=== PATIENT | male | born 1955 | race Caucasian/White ===

== ENCOUNTER 2017-12-17 10:39 | Inpatient (IN) | payer OTHER ==
[~2017-12-17] VITALS: Ht 162.6 cm; Wt 57.8 kg
[~2017-12-17 10:39] MED LIST: AMLO5TAB3 PO; ASPECOTC PO; ATOR-24 PO; INSDGI SC; LEVO25TA PO; LISI-725 PO; METO50TA16 PO; NVLG INJ; OXYC-57 PO
[2017-12-17 14:20] VITALS: BP 131/71; PULSE 70; TEMP 36.8; O2SAT 99; BMI 21.9
[2017-12-17] MEDS ORDERED: ONDANSETRON INJ 2 MG/ML 2 ML VIAL IV PRN (14:30)
[2017-12-17] MEDS ORDERED: MoRPHine SULFATE 2 MG/ML CARP IV PRN (14:30)
[2017-12-17] MEDS ORDERED: OXYCODONE/ACETAMINOPHEN 5-325 TAB PO PRN ×2 (14:30)
[2017-12-17] MEDS ORDERED: ACETAMINOPHEN 325 MG TAB PO PRN (14:30)
[2017-12-17] MEDS ORDERED: MoRPHine SULFATE 4 MG/ML 1 ML CARP\\VIAL IV PRN (14:30)
[2017-12-17] MEDS ORDERED: PATIENT'S HEIGHT AND/OR WEIGHT NEEDED SCH (14:45)
[2017-12-17] MEDS ORDERED: SODIUM CHLORIDE 0.9% 1000ML 1,000 ML IV SCH (14:45)
--- NOTE | 2017-12-17 15:31 | DIAGNOSTIC IMAGING REPORT ---
R FOOT MIN 3 VIEWS ROUTINE CLINICAL HISTORY: Right foot abscess infection COMPARISON: 10/29/2017 DISCUSSION: Operative changes consistent with resection of the middle and distal phalanx second toe with resection of the distal aspect of the proximal phalanx. Generalized degenerative change of all remaining osseous structures. Mild generalized osteopenia of the phalanges. Moderate generalized soft tissue edematous change. No acute bony abnormality. IMPRESSION: 1. Interval resection of the phalanges of the second toe as discussed. 2. Moderate soft tissue edematous change. 3. No acute bony abnormality is appreciated. The above report was generated using voice recognition software. It may contain grammatical, syntax or spelling errors. Electronically signed by: Antony Phan M.D. 12/17/2017 3:29 PM Dictated Date/Time: 12/17/2017 3:28 PM
[2017-12-17] MEDS ORDERED: PIPERACILL/TAZOBAC CONSULT ACTIVE PRN (15:45)
[2017-12-17] MEDS ORDERED: PIPERACILL/TAZOBAC IV 3.375 GM in D5W 100 ML IV ONE (15:45)
[2017-12-17 16:38] LABS: CREATININE 0.74 mg/dl (0.60-1.40)
[2017-12-17] MEDS ORDERED: PNEUMOCOCCAL ADMINISTRATION CHARGE ONE (17:30)
[2017-12-17] MEDS ORDERED: PNEUMOCOCCAL POLYSACCHARIDES 25 MCG/0.5 ML VIAL/SYR IM. ONE (17:30)
[2017-12-17] MEDS ORDERED: DEXTROSE 50% 50 ML SYR IV PRN (18:00)
[2017-12-17] MEDS ORDERED: GLUCOSE 10 TABS/TUBE PO PRN (18:00)
[2017-12-17] MEDS ORDERED: GLUCAGON FOR INJ 1 MG VIAL SQ PRN (18:00)
[2017-12-17] MEDS ORDERED: GLUCOSE 40% GEL 15 GM TUBE PO PRN (18:00)
[2017-12-17 18:17] LABS: HEMATOCRIT 34.7 % (42-52); HEMOGLOBIN 11.8 g/dL (14.0-18.0); MEAN CORPUSCULAR HEMOGLOBIN 29.6 pg (25-34); MEAN PLATELET VOLUME 9.5 fL (7.4-10.4); PLATELET COUNT 403 K/uL (130-400); RED CELL DISTRIBUTION WIDTH CV 13.6 % (11.5-14.5); RED CELL DISTRIBUTION WIDTH SD 43.1 fL (36.4-46.3); WHITE BLOOD COUNT 14.94 K/uL (4.8-10.8)
[2017-12-17] MEDS: INSULIN ASPART 100 UNITS/ML 3 ML PEN SC SCH ×2 (18:39→21:25)
--- NOTE | 2017-12-17 18:42 | Medical Consult ---
Consultation Date of Consultation: Dec 17, 2017. Attending Physician: Butch Peña M.D. Reason for Consultation: Medical management History of Present Illness 62-year-old male who is directly admitted under general surgery service for right foot abscess. Patient was recently admitted to [facility] 10/29 through 11/01 for right second toe osteomyelitis and gangrene. Patient underwent right second toe amputation during that hospitalization. Wound cultures from that time grew coag negative staph and corynebacterium. Patient was discharged on Augmentin which he completed. Patient reports he has had persistent drainage from the right second toe amputation site. Over the past 4 days, he developed an ulcer on the right medial aspect of the right great toe. He also then noted the skin on the plantar surface of his foot at the base of his toes to be turning yellow and soft. Patient was seen in Dr. Peña's office today for follow-up and he was sent to the hospital for direct admission. Patient denies fevers and chills. He reports his blood sugars have been well controlled. He denies chest pain shortness of breath. No lightheadedness, dizziness, diaphoresis, syncopal events. He denies abdominal pain, nausea, vomiting, diarrhea. He denies any urinary symptoms. At the time my exam, patient is sitting up at the edge of the bed having his dinner. Past Medical/Surgical History Medical Problems: (1) CAD (coronary artery disease) Permanent Comment: 2003-cardiac catheterization showed multivessel CAD involving the mid LAD, first diagonal, circumflex, obtuse marginal, RCA, and posterolateral branches; medical management advised Status: Chronic (2) Diabetes mellitus type 1 Status: Chronic (3) Dyslipidemia Status: Chronic (4) History of left below knee amputation Status: Chronic (5) Hypertension Status: Chronic (6) PAD (peripheral artery disease) Permanent Comment: 1997-left femoropopliteal bypass 1999-left distal bypass 2006-right femoral to left profunda bypass and left BKA Status: Chronic Surgical Problems: (1) History of appendectomy Status: Chronic (2) Right second toe amputation Status: Chronic Family History Diabetes mellitus FATHER MOTHER Social History Smoking Status: Former Smoker Smokeless Tobacco Use: Yes Alcohol Use: none Drug Use: marijuana Allergies Coded Allergies: Adhesives (Verified Allergy, Mild, 10/29/17) Latex1 -Allergic Contact Dermititis (Verified Allergy, Unknown, 10/29/17) Home Medications Aspirin 325 Mg Tab 1 Tab PO DAILY Zestril (Lisinopril) 20 Mg Tab 20 Mg PO DAILY Lopressor (Metoprolol Tartrate) 50 Mg Tab 50 Mg PO BID Norvasc (Amlodipine Besylate) 5 Mg Tab 5 Mg PO DAILY Lipitor (Atorvastatin Calcium) 40 Mg Tab 40 Mg PO DAILY Novolog (Insulin Aspart) 100 Units/Ml Inj 4 Units INJ TIDM plus sliding scale Lantus (Insulin Glargine) 100 Unit/Ml Inj 15 Units SC QPM Current Inpatient Medications Current Inpatient Medications Medications (Trade) Dose Ordered Sig/Annette Route Start Time Stop Time Status Last Admin Dose Admin Sodium Chloride 1,000 ml @ 100 mls/hr Q10H IV 12/17/17 14:45 01/16/18 14:44 12/17/17 16:26 100 MLS/HR Ondansetron HCl (Zofran Inj) 4 mg Q4H PRN IV 12/17/17 14:30 01/16/18 14:29 Acetaminophen (Tylenol Tab) 650 mg Q6H PRN PO 12/17/17 14:30 01/16/18 14:29 Oxycodone/ Acetaminophen (Percocet 5-325mg Tab) 1 tab Q4H PRN PO 12/17/17 14:30 12/31/17 14:29 Morphine Sulfate (MoRPHine SULFATE INJ) 2 mg Q3HWA PRN IV 12/17/17 14:30 12/31/17 14:29 Oxycodone/ Acetaminophen (Percocet 5-325mg Tab) 2 tab Q4H PRN PO 12/17/17 14:30 12/31/17 14:29 Morphine Sulfate (MoRPHine SULFATE INJ) 4 mg Q3HWA PRN IV 12/17/17 14:30 12/31/17 14:29 Miscellaneous Information (Consult) 1 ea UD PRN N/A 12/17/17 15:45 01/16/18 15:44 Heparin Sodium (Porcine) (Heparin Sq 5000 Unit/0.5ml) 5,000 unit Q12 SQ 12/18/17 09:00 01/17/18 08:59 Piperacillin Sod/ Tazobactam Sod 3.375 gm/Dextrose 115 ml @ 28.75 mls/ hr Q8H IV 12/17/17 22:00 12/18/17 17:59 Amlodipine Besylate (Norvasc Tab) 5 mg DAILY PO 12/18/17 09:00 01/17/18 08:59 Atorvastatin Calcium (Lipitor Tab) 40 mg DAILY PO 12/18/17 09:00 01/17/18 08:59 Insulin Glargine (Lantus Solostar Pen) 15 units QPM SC 12/17/17 21:00 01/16/18 20:59 Lisinopril (Zestril Tab) 20 mg DAILY PO 12/18/17 09:00 01/17/18 08:59 Metoprolol Tartrate (Lopressor Tab) 50 mg BID PO 12/17/17 21:00 01/16/18 20:59 Insulin Aspart (novoLOG ASPART) SLIDING SCALE If C... ACHS SC 12/17/17 17:15 01/16/18 17:14 Glucose (Glucose 40% Gel) 15-30 GRAMS 15 GRAMS... UD PRN PO 12/17/17 18:00 01/16/18 17:59 Glucose (Glucose Chew Tab) 4-8 Tablets 4 Tabl... UD PRN PO 12/17/17 18:00 01/16/18 17:59 Dextrose (Dextrose 50% 50ML Syringe) 25-50ML 25ML FOR ... UD PRN IV 12/17/17 18:00 01/16/18 17:59 Glucagon (Glucagon Inj) 1 mg UD PRN SQ 12/17/17 18:00 01/16/18 17:59 Carbohydrates (Carbohydrates For Hypoglycemia) 15-30 GRAMS 15 grams if BSG 54-69... UD PRN PO 12/17/17 18:00 01/16/18 17:59 Review of Systems ROS per HPI, all other systems reviewed and negative Physical Exam Date Time Temp Pulse Resp B/P (MAP) Pulse Ox O2 Delivery O2 Flow Rate FiO2 12/17/17 15:30 Room Air 12/17/17 14:20 36.8 70 18 131/71 99 Room Air General Appearance: WD/WN, no apparent distress Head: normocephalic, atraumatic Eyes: normal inspection, EOMI, funduscopic exam normal ENT: hearing grossly normal, + pertinent finding (Mucous membranes moist) Neck: supple, no JVD, trachea midline Respiratory/Chest: lungs clear, normal breath sounds, no respiratory distress Cardiovascular: regular rate, rhythm, no edema, + pertinent finding (Pedal pulses diminished) Abdomen/GI: normal bowel sounds, non tender, soft, no organomegaly Extremities/Musculoskelatal: no calf tenderness, normal capillary refill, + pertinent finding (Left BKA) Neurologic/Psych: no motor/sensory deficits, alert, normal mood/affect, oriented x 3 Skin: normal color, warm/dry, + pertinent finding (Open wound noted to right second toe amputation site with white/yellow drainage; ulcer noted to the medial aspect of the base of the right great toe; yellow tissue noted to the base of the right toes on the plantar surface) Laboratory Results Last 24 Hours Test 12/17/17 16:03 12/17/17 17:00 12/17/17 17:54 Creatinine 0.74 mg/dl Est Creatinine Clear Calc Drug Dose 83.5 ml/min Estimated GFR () 113.8 Estimated GFR (Non- 98.2 Bedside Glucose 137 mg/dl Assessment & Plan RIGHT FOOT ABSCESS -Directly admitted by general surgery service -History of right second toe osteomyelitis/gangrene status post amputation on ; wound cultures grew coag negative staph and corynebacterium -Currently afebrile, vital signs stable; labs pending -Started on Zosyn by general surgery -ID consult by general surgery DM TYPE I -Hgb A1c 9.9 08/2017 -Continue Lantus and NovoLog CAD -Stable, no reports of chest pain -Continue statin, beta-theo -will hold aspirin due to possible invasive procedure HYPERTENSION -BP stable, continue lisinopril and metoprolol PAD -Holding aspirin due to possible invasive procedure POSSIBLE HYPOTHYROIDISM -During previous admission, patient was noted to have an elevated TSH however normal free T4 -He was started on low-dose levothyroxine at discharge however has since run out of the prescription -Question if recent abnormal TSH was secondary to an acute phase reactant from infection -Will recheck TSH and free T4 -Hold on levothyroxine for now DVT PROPHYLAXIS Heparin SQ Thank you for this consultation. We will follow the patient with you during their hospital stay. You can reach a [facility]/12 via pager @ . Attending Note: Patient is a 62 yr male with PMH of DM I, PAD, Osteomyelitis and other problems presents with drainage from right 2nd toe amputation site. On recommendations from Dr. Peña, patient is admitted for further management. Physical Exam: Vitals signs as noted above General Appearance:Moderately built and nourished, no apparent distress Head: normocephalic, Atraumatic Eyes: normal inspection, EOMI, PERRL Neck: supple, Trachea midline Respiratory/Chest: Normal breath sounds, CTA Cardiovascular: S1, S2, No murmur Abdomen/GI:Soft, Non tender, Bowel sounds present Extremities/Musculoskelatal:normal inspection, no edema, Left BKA, Right foot wound/drainage with ulceration Neurologic/Psych:AAOX3, grossly no focal neurological deficits Skin:normal color,warm Assessment and Plan: Right Foot Abscess 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 Continue IV Zosyn ID consulted for Input Surgery on board DM Type I ISS, Lantus Monitor BGs I personally reviewed the record. Patient is interviewed and examined at bedside. Patient's care is coordinated with Roberta Leo HOUSEKEEPING/LAUNDRY SUPERVISOR. Please refer to the documentation above for details of patient's presentation and for discussion of other issues.
[2017-12-17 18:46] LABS: CALCIUM 9.2 mg/dl (8.5-10.1); CREATININE 0.78 mg/dl (0.60-1.40); POTASSIUM 5.2 mmol/L (3.5-5.1)
[2017-12-17] MEDS: SODIUM CHLORIDE 0.9% 1000ML 1,000 ML IV SCH (19:30)
[2017-12-17] MEDS ORDERED: INSULIN GLARGINE SOLOSTAR 100 UNITS/ML 3 ML PEN SC SCH (21:00)
[2017-12-17 21:20] VITALS: BP 152/64; PULSE 72
[2017-12-17] MEDS: METOPROLOL TARTRATE 50 MG TAB PO SCH (21:22)
[2017-12-17] MEDS: PIPERACILL/TAZOBAC IV 3.375 GM in D5W 100ML IV SCH (21:52)
[2017-12-17] MEDS ORDERED: PIPERACILL/TAZOBAC IV 3.375 GM in DEXTROSE 5% 100ML 100 ML IV SCH (22:00)
[2017-12-17 22:28] VITALS: O2SAT 99
[2017-12-17 23:22] VITALS: BP 143/65; PULSE 87; TEMP 37; O2SAT 100
[2017-12-18] MEDS: SODIUM CHLORIDE 0.9% 1000ML 1,000 ML IV SCH ×2 (04:22→19:18)
[2017-12-18] MEDS: PIPERACILL/TAZOBAC IV 3.375 GM in D5W 100ML IV SCH ×3 (05:47→21:50)
[2017-12-18 06:04] LABS: BASO % 0.4 %; BASO ABS # 0.05 K/uL (0-0.2); EOS % 4.5 %; EOS ABS # 0.53 K/uL (0-0.5); HEMATOCRIT 34.1 % (42-52); HEMOGLOBIN 11.4 g/dL (14.0-18.0); IG# 0.02 K/uL (0.00-0.02); LYMPH % 20.2 %; LYMPH ABS # 2.39 K/uL (1.2-3.4); MEAN CELL VOLUME 86.5 fL (80-100); MEAN CORPUSCULAR HEMOGLOBIN 28.9 pg (25-34); MEAN CORPUSCULAR HGB CONC 33.4 g/dl (32-36); MEAN PLATELET VOLUME 9.4 fL (7.4-10.4); MONO % 6.9 %; MONO ABS # 0.81 K/uL (0.11-0.59); NEUT % 67.8 %; NEUT ABS # 8.02 K/uL (1.4-6.5); PLATELET COUNT 393 K/uL (130-400); RED CELL DISTRIBUTION WIDTH CV 13.5 % (11.5-14.5); RED CELL DISTRIBUTION WIDTH SD 42.6 fL (36.4-46.3); WHITE BLOOD COUNT 11.82 K/uL (4.8-10.8)
[2017-12-18 06:15] LABS: PTT PATIENT 25.6 SECONDS (21.0-31.0)
[2017-12-18 06:55] LABS: ALBUMIN 3.4 gm/dl (3.4-5.0); CALCIUM 9.2 mg/dl (8.5-10.1); CREATININE 0.71 mg/dl (0.60-1.40); POTASSIUM 3.8 mmol/L (3.5-5.1); TOTAL PROTEIN 7.1 gm/dl (6.4-8.2)
[2017-12-18] MEDS: CARBOHYDRATES FOR HYPOGLYCEMIA PO PRN ×2 (06:58→07:18)
[2017-12-18 07:52] VITALS: BP 156/62; PULSE 70; TEMP 36.5; O2SAT 96
[2017-12-18 07:54] VITALS: O2SAT 96
--- NOTE | 2017-12-18 08:47 | SURGERY PROGRESS NOTE ---
DATE: 12/18/2017 Casa is well known to me for approximately 20 years who has had significant peripheral vascular disease, multiple revascularizations over the past and had a left BK amputation approximately 10 years ago. I saw him at the beginning of October where he came in with a dry gangrene of the second toe, underwent a vascular evaluation and found to have 1-vessel open below the knee, not amendable to any therapy. At this time we went on and given the option to either leave that toe as it is since it was a dry gangrene and there was no evidence of cellulitis or try to take it off. He wanted to take the toe off. Therefore, we went on and resected the proximal phalanx. We saw him in the office a couple times in followup, one time he cancelled because his battery in the car was not working but every time he came in. The area initially it seems like it was improving and then I saw him about a week ago where he had some debris around the operative site, some ischemic tissue, I tried to mechanically remove that and a little uncomfortable with it. The site and the base of it appeared to be somewhat perfused. Therefore, I went on and started him on some Santyl to see him back in the office in 1 week. Also I put him on Cleocin. He came back to the office with what appeared to be dry ischemic changes in the great toe area. It seemed like from moisture embedding the tissue in the great toe area. I denuded the skin in that area in length. The base appeared to be fairly vascular in nature but given the extent of this, I recommended that the patient be admitted for antibiotics and possible decide whether or not we would need further amputation including a BK amputation as a last resort, as stated, he already had a BKA on the left side. The patient's clinical picture as such that he said since the toe was dark, he has had some trouble sleeping at night, indicating there is probably significant rest pain, although on examination, he does have capillary refill also sluggish. At this point, we will have Dr. Butts see the patient and try to see if we can salvage any tissue and try at all cost to avoid a BK amputation. We can certainly try to do a transmetatarsal amputation but I am worried that this may not work, the fact that he has got rest pain. Of note, since he was admitted last night, the area on the antibiotics looked much better. The dry skin that was at the surrounding the mid portion of the great toe is pretty much gone and the toe itself appears to be fairly perfused as he is sitting up. The x-ray of the foot shows no active loss still he does have the resection of the proximal phalanx of the second toe. I will add some Plavix on for the gentleman at this time to see if it may help the perfusion. I do not think heparinization or long-term Coumadin would be indicated. Also of note, this gentleman is a quite stoic, in fact years past, he pulled out his own molars with a pair of pliers.
[2017-12-18] MEDS ORDERED: PHARMACY GLYCEMIC MGMT CONSULT PRN (09:05)
[2017-12-18] MEDS: AMLODIPINE BESYLATE 5 MG TAB PO SCH (09:10)
[2017-12-18] MEDS: METOPROLOL TARTRATE 50 MG TAB PO SCH ×2 (09:10→21:25)
[2017-12-18] MEDS: ATORVASTATIN 40 MG TAB PO SCH (09:10)
[2017-12-18] MEDS: LISINOPRIL 20 MG TAB PO SCH (09:11)
[2017-12-18] MEDS: HEPARIN SOD 5000 UNIT/0.5 ML CARP SQ SCH ×2 (09:18→21:22)
[2017-12-18] MEDS: INSULIN ASPART 100 UNITS/ML 3 ML PEN SC SCH ×4 (09:23→21:21)
--- NOTE | 2017-12-18 10:48 | Medical Consult ---
Consultation Date of Consultation: Dec 18, 2017. Attending Physician: Butch Peña M.D. Reason for Consultation: Right foot infection History of Present Illness 62-year-old male with severe peripheral arterial disease, diabetes mellitus, hospitalized in October for amputation of his right second toe for dry gangrene, status post left BK amputation, who was admitted to the hospital with 5 days worsening infection at the amputation site in his right foot. He had increasing drainage and poor wound healing, was treated with clindamycin without significant improvement. Has now been started empirically on vancomycin and Zosyn. Cultures are pending. X-rays, read by me, showed no obvious progressive osteomyelitis. He has had low-grade fever and chills. Pain up to 8 out of 10 in intensity right foot. Past Medical/Surgical History Medical Problems: (1) CAD (coronary artery disease) (2) Diabetes mellitus type 1 (3) Dyslipidemia (4) History of left below knee amputation (5) Hypertension (6) PAD (peripheral artery disease) Surgical Problems: (1) History of appendectomy (2) Right second toe amputation Family History Diabetes mellitus FATHER MOTHER Social History Smoking Status: Former Smoker Smokeless Tobacco Use: Yes Alcohol Use: none Drug Use: marijuana Allergies Coded Allergies: Adhesives (Verified Allergy, Mild, 10/29/17) Latex1 -Allergic Contact Dermititis (Verified Allergy, Unknown, 10/29/17) Current Inpatient Medications Current Inpatient Medications Medications (Trade) Dose Ordered Sig/Annette Route Start Time Stop Time Status Last Admin Dose Admin Ondansetron HCl (Zofran Inj) 4 mg Q4H PRN IV 12/17/17 14:30 01/16/18 14:29 Acetaminophen (Tylenol Tab) 650 mg Q6H PRN PO 12/17/17 14:30 01/16/18 14:29 Oxycodone/ Acetaminophen (Percocet 5-325mg Tab) 1 tab Q4H PRN PO 12/17/17 14:30 12/31/17 14:29 12/18/17 09:28 1 TAB Morphine Sulfate (MoRPHine SULFATE INJ) 2 mg Q3HWA PRN IV 12/17/17 14:30 12/31/17 14:29 Oxycodone/ Acetaminophen (Percocet 5-325mg Tab) 2 tab Q4H PRN PO 12/17/17 14:30 12/31/17 14:29 12/18/17 00:44 2 TAB Morphine Sulfate (MoRPHine SULFATE INJ) 4 mg Q3HWA PRN IV 12/17/17 14:30 12/31/17 14:29 Miscellaneous Information (Consult) 1 ea UD PRN N/A 12/17/17 15:45 01/16/18 15:44 Heparin Sodium (Porcine) (Heparin Sq 5000 Unit/0.5ml) 5,000 unit Q12 SQ 12/18/17 09:00 01/17/18 08:59 12/18/17 09:18 5,000 UNIT Piperacillin Sod/ Tazobactam Sod 3.375 gm/Dextrose 115 ml @ 28.75 mls/ hr Q8H IV 12/17/17 22:00 12/18/17 17:59 12/18/17 05:47 28.75 MLS/HR Amlodipine Besylate (Norvasc Tab) 5 mg DAILY PO 12/18/17 09:00 01/17/18 08:59 12/18/17 09:10 5 MG Atorvastatin Calcium (Lipitor Tab) 40 mg DAILY PO 12/18/17 09:00 01/17/18 08:59 12/18/17 09:10 40 MG Insulin Glargine (Lantus Solostar Pen) 15 units QPM SC 12/17/17 21:00 01/16/18 20:59 12/17/17 21:24 15 UNITS Lisinopril (Zestril Tab) 20 mg DAILY PO 12/18/17 09:00 01/17/18 08:59 12/18/17 09:11 20 MG Metoprolol Tartrate (Lopressor Tab) 50 mg BID PO 12/17/17 21:00 01/16/18 20:59 12/18/17 09:10 50 MG Insulin Aspart (novoLOG ASPART) SLIDING SCALE If C... ACHS SC 12/17/17 17:15 01/16/18 17:14 12/18/17 09:23 2 UNITS Glucose (Glucose 40% Gel) 15-30 GRAMS 15 GRAMS... UD PRN PO 12/17/17 18:00 01/16/18 17:59 12/18/17 06:57 30 GM Glucose (Glucose Chew Tab) 4-8 Tablets 4 Tabl... UD PRN PO 12/17/17 18:00 01/16/18 17:59 Dextrose (Dextrose 50% 50ML Syringe) 25-50ML 25ML FOR ... UD PRN IV 12/17/17 18:00 01/16/18 17:59 Glucagon (Glucagon Inj) 1 mg UD PRN SQ 12/17/17 18:00 01/16/18 17:59 Carbohydrates (Carbohydrates For Hypoglycemia) 15-30 GRAMS 15 grams if BSG 54-69... UD PRN PO 12/17/17 18:00 01/16/18 17:59 12/18/17 06:58 30 GM Sodium Chloride 1,000 ml @ 80 mls/hr [id number] IV 12/17/17 19:30 01/16/18 19:29 12/18/17 04:22 80 MLS/HR Clopidogrel Bisulfate (plAVix TAB) 75 mg QAM PO 12/18/17 09:00 01/17/18 08:59 Miscellaneous Information (Consult Glycemic Management Pharmacy) 1 ea UD PRN N/A 12/18/17 09:05 01/17/18 09:04 Review of Systems All systems were reviewed and are negative except as per HPI Physical Exam Date Time Temp Pulse Resp B/P (MAP) Pulse Ox O2 Delivery O2 Flow Rate FiO2 12/18/17 07:54 96 Room Air 12/18/17 07:52 36.5 70 15 156/62 (93) 96 Room Air 12/18/17 07:29 Room Air 12/17/17 23:45 Room Air 12/17/17 23:22 37.0 87 18 143/65 (91) 100 Room Air 12/17/17 22:28 99 Room Air 12/17/17 21:20 72 152/64 (93) 12/17/17 19:30 Room Air 12/17/17 15:30 Room Air 12/17/17 14:20 36.8 70 18 131/71 99 Room Air General Appearance: WD/WN, no apparent distress Head: normocephalic, atraumatic Eyes: normal inspection, EOMI, sclerae normal ENT: normal ENT inspection, hearing grossly normal, pharynx normal Neck: supple, no adenopathy, thyroid normal, trachea midline Respiratory/Chest: chest non-tender, lungs clear, normal breath sounds, no respiratory distress Cardiovascular: regular rate, rhythm, no gallop, no murmur Abdomen/GI: normal bowel sounds, non tender, soft, no organomegaly Back: normal inspection, no CVA tenderness Extremities/Musculoskelatal: normal inspection, no calf tenderness, + slow capillary refill, + pertinent finding (Left BKA) Neurologic/Psych: alert, oriented x 3 Skin: normal color, no rash, + pertinent finding (Open wound right foot at the amputation site with serous drainage, erythema and induration of the foot.) Lymphatic: no adenopathy Laboratory Results RUN DATE: 10/31/17 [facility] LAB PAGE 1 RUN TIME: 1159 Specimen Inquiry PATIENT: TREE MONTELONGO LOC: [facility] U # : [id number] AGE/SX: 61/M ROOM: [facility] REG : 10/29/[address]: Shamar Serrato M.D. : 1955 BED: 2 DIS : STATUS: ADM IN TLOC: SPEC #: [id number] GEOFF: 10/29/17-UNK STATUS: COMP REQ #: [id number] RECD: 10/29/17-[address]: Brett Gibbs PA- C SOURCE: [facility] ENTR: 10/29/[address]: No Doctor, Assigned SPDESC: TOE Butch Em M.D. ORDERED: MIHAI FANG/[place] COMMENTS: Has Specimen Been Obtained/Collected? Y Procedure Result Verified Site GRAM STAIN Final 10/30/17-08 RESULT FEW EPITHELIAL CELLS FEW GRAM POSITIVE BACILLI MODERATE GRAM POSITIVE COCCI RARE WBCs SEEN SURFACE WOUND CULTURE Final 10/31/17-1159 Organism 1 COAG NEG STAPHYLOCOCCUS QUANITY MANY SENS NO SENSITIVITY TO FOLLOW +MIXWOUND PLUS HIGH COUNTS OF PROBABLE SKIN CRISTY Organism 2 CORYNEBACTERIUM SPECIES QUANITY MANY SENS NO SENSITIVITY TO FOLLOW Last 24 Hours Test 12/17/17 16:03 12/17/17 17:00 12/17/17 17:54 12/17/17 20:58 Creatinine 0.74 mg/dl 0.78 mg/dl Est Creatinine Clear Calc Drug Dose 83.5 ml/min 79.2 ml/min Estimated GFR () 113.8 111.3 Estimated GFR (Non- 98.2 96.1 Bedside Glucose 137 mg/dl 270 mg/dl White Blood Count 14.94 K/uL Red Blood Count 3.99 M/uL Hemoglobin 11.8 g/dL Hematocrit 34.7 % Mean Corpuscular Volume 87.0 fL Mean Corpuscular Hemoglobin 29.6 pg Mean Corpuscular Hemoglobin Concent 34.0 g/dl RDW Standard Deviation 43.1 fL RDW Coefficient of Variation 13.6 % Platelet Count 403 K/uL Mean Platelet Volume 9.5 fL Sodium Level 133 mmol/L Potassium Level 5.2 mmol/L Chloride Level 98 mmol/L Carbon Dioxide Level 30 mmol/L Anion Gap 4.0 mmol/L Blood Urea Nitrogen 19 mg/dl BUN/Creatinine Ratio 24.5 Random Glucose 227 mg/dl Calcium Level 9.2 mg/dl Thyroid Stimulating Hormone (TSH) 11.700 uIu/ml Free Thyroxine 0.94 ng/dl Test 12/18/17 05:35 12/18/17 06:57 12/18/17 07:11 12/18/17 07:35 White Blood Count 11.82 K/uL Red Blood Count 3.94 M/uL Hemoglobin 11.4 g/dL Hematocrit 34.1 % Mean Corpuscular Volume 86.5 fL Mean Corpuscular Hemoglobin 28.9 pg Mean Corpuscular Hemoglobin Concent 33.4 g/dl Platelet Count 393 K/uL Mean Platelet Volume 9.4 fL Neutrophils (%) (Auto) 67.8 % Lymphocytes (%) (Auto) 20.2 % Monocytes (%) (Auto) 6.9 % Eosinophils (%) (Auto) 4.5 % Basophils (%) (Auto) 0.4 % Neutrophils # (Auto) 8.02 K/uL Lymphocytes # (Auto) 2.39 K/uL Monocytes # (Auto) 0.81 K/uL Eosinophils # (Auto) 0.53 K/uL Basophils # (Auto) 0.05 K/uL RDW Standard Deviation 42.6 fL RDW Coefficient of Variation 13.5 % Immature Granulocyte % (Auto) 0.2 % Immature Granulocyte # (Auto) 0.02 K/uL Prothrombin Time 10.3 SECONDS Prothromb Time International Ratio 1.0 Activated Partial Thromboplast Time 25.6 SECONDS Partial Thromboplastin Ratio 1.0 Sodium Level 136 mmol/L Potassium Level 3.8 mmol/L Chloride Level 100 mmol/L Carbon Dioxide Level 28 mmol/L Anion Gap 8.0 mmol/L Blood Urea Nitrogen 13 mg/dl Creatinine 0.71 mg/dl Est Creatinine Clear Calc Drug Dose 87.1 ml/min Estimated GFR () 115.7 Estimated GFR (Non- 99.9 BUN/Creatinine Ratio 19.0 Random Glucose 46 mg/dl Calcium Level 9.2 mg/dl Total Bilirubin 0.3 mg/dl Aspartate Amino Transf (AST/SGOT) 48 U/L Alanine Aminotransferase (ALT/SGPT) 40 U/L Alkaline Phosphatase 104 U/L Total Protein 7.1 gm/dl Albumin 3.4 gm/dl Globulin 3.7 gm/dl Albumin/Globulin Ratio 0.9 Bedside Glucose 57 mg/dl 60 mg/dl 93 mg/dl [~ rep ct add3]] R FOOT MIN 3 VIEWS ROUTINE CLINICAL HISTORY: Right foot abscess infection COMPARISON: 10/29/2017 DISCUSSION: Operative changes consistent with resection of the middle and distal phalanx second toe with resection of the distal aspect of the proximal phalanx. Generalized degenerative change of all remaining osseous structures. Mild generalized osteopenia of the phalanges. Moderate generalized soft tissue edematous change. No acute bony abnormality. IMPRESSION: 1. Interval resection of the phalanges of the second toe as discussed. 2. Moderate soft tissue edematous change. 3. No acute bony abnormality is appreciated. The above report was generated using voice recognition software. It may contain grammatical, syntax or spelling errors. Assessment & Plan 62-year-old male with severe peripheral arterial disease and diabetes mellitus now with worsening right foot infection following amputation of his right second toe. Pending decision regarding need for further surgery, patient to be treated empirically with vancomycin and Zosyn. Would obtain culture from drainage from the foot. Will follow.
[2017-12-18] MEDS: CLOPIDOGREL BISULFATE 75 MG TAB PO SCH (11:11)
--- NOTE | 2017-12-18 11:17 | Pharmacy Progress Note ---
Glycemic Control Intl Consult Date of Service Dec 18, 2017. Scope Glycemic Pharmacist consulted by Dr Low on 12/18/17 for glycemic control and to write orders per [facility] inpatient glycemic control protocol Objective Weight (Kilograms): 57.800 Accuchecks BSG (last 24hrs): Test 12/17/17 17:00 12/17/17 17:54 12/17/17 20:58 12/18/17 05:35 Bedside Glucose 137 mg/dl (70-99) 270 mg/dl (70-99) Random Glucose 227 mg/dl (70-99) 46 mg/dl (70-99) Test 12/18/17 06:57 12/18/17 07:11 12/18/17 07:35 Bedside Glucose 57 mg/dl (70-99) 60 mg/dl (70-99) 93 mg/dl (70-99) Laboratory Data (last 24hrs) Test 12/17/17 16:03 12/17/17 17:54 12/18/17 05:35 Creatinine 0.74 mg/dl 0.78 mg/dl 0.71 mg/dl Anion Gap 4.0 mmol/L 8.0 mmol/L BUN/Creatinine Ratio 24.5 19.0 Blood Urea Nitrogen 19 mg/dl 13 mg/dl Potassium Level 5.2 mmol/L 3.8 mmol/L Sodium Level 133 mmol/L 136 mmol/L White Blood Count 14.94 K/uL 11.82 K/uL Red Blood Count 3.94 M/uL Hemoglobin 11.4 g/dL Hematocrit 34.1 % Mean Corpuscular Volume 86.5 fL Mean Corpuscular Hemoglobin 28.9 pg Mean Corpuscular Hemoglobin Concent 33.4 g/dl Platelet Count 393 K/uL Mean Platelet Volume 9.4 fL Neutrophils (%) (Auto) 67.8 % Lymphocytes (%) (Auto) 20.2 % Monocytes (%) (Auto) 6.9 % Eosinophils (%) (Auto) 4.5 % Basophils (%) (Auto) 0.4 % Neutrophils # (Auto) 8.02 K/uL Lymphocytes # (Auto) 2.39 K/uL Monocytes # (Auto) 0.81 K/uL Eosinophils # (Auto) 0.53 K/uL Basophils # (Auto) 0.05 K/uL Recent Pertinent Medications Outpatient Anti-diabetic Regimen: * Lantus 15 units qPM * Novolog 4 units with meals + sliding scale * A1c = 9.9 % 08/2017 The patient is currently receiving: * Basal insulin: Lantus 15 units every 24 hours - dosed at HS * Correctional Insulin: Novolog Correction per scale ACHS Goal Range: Low 110 mg/dL - High 150 mg/dL Correction Factor: 40 mg/dL/unit * Prandial insulin: Per carb ratio of 1 unit per 14 grams CHO consumed Risk Factors for Insulin Resistance: * Infection: R foot abscess - on Zosyn * Diet: type 1 diabetes diet - consuming adequate amt of CHO with meals Assessment & Plan ASSESSMENT: * 62 y/o male admitted with R foot abscess, well known to the pharmacy glycemic service from previous admissions. He is a fairly brittle type 1 diabetic, managed on Lantus and Novolog as an outpatient. * Pharmacy consulted this AM after patient sustained a severe episode of hypoglycemia this AM - treated with 45 gm CHO as per nursing note * As per recent CDE notes, he typically has overnight lows at home so he eats a large amt at bedtime to increase his BSG and prevent the overnight low. To prevent this on the inpatient side, will plan to decrease his basal. I did see that an HS snack was ordered but will still need covered with bolus insulin. PLAN FOR INPATIENT GLYCEMIC CONTROL: * Basal insulin - decrease * Lantus 13 units qHS * Bolus Insulin with NOVOLOG per scale ACHS or Q6hrs while NPO - no change except to loosen HS parameters * Goal Range: Low 110 mg/dL - High 150 mg/dL * Correction Factor: 40 mg/dL/unit, 50 mg/dL/unit at HS * Nutritional / Prandial insulin per carb ratio of 1 unit per 14 grams CHO consumed, 1 unit per 20 gm CHO at HS * A1c ordered for tomorrow to assess recent BSG control, last one > 90 days ago * Please note that the plan above was derived based on current level of insulin resistance and hospital stress. These recommendations are appropriate for inpatient admission only. Plan of care upon discharge will need to be reassessed to avoid potential outpatient hypo/hyperglycemia. Thank you.
[2017-12-18 11:19] VITALS: O2SAT 96
[2017-12-18 11:43] VITALS: BMI 21.9
[2017-12-18] MEDS ORDERED: CONSULT PHARMACY STA (13:13)
--- NOTE | 2017-12-18 13:23 | Progress Note ---
Internal Med Progress Note Date of Service: Dec 18, 2017. Provider Documentation: SUBJECTIVE: Seen and examined at bedside States having mild foot pain at rest and with cold exposure Hypoglycemic this morning but asymptomatic Started on Plavix Denies chest pain, SOB, dizziness No other complaints OBJECTIVE: Vital Signs-as noted below General Appearance:Moderately built and nourished, no apparent distress Head: normocephalic, Atraumatic Eyes: normal inspection, EOMI, PERRL Neck: supple, Trachea midline Respiratory/Chest: Normal breath sounds, CTA Cardiovascular: S1, S2, No murmur Abdomen/GI:Soft, Non tender, Bowel sounds present Extremities/Musculoskelatal:normal inspection, no edema, Left BKA, Right foot wound/drainage with ulceration Neurologic/Psych:AAOX3, grossly no focal neurological deficits Skin:normal color,warm Lab data as noted below. 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 Continue IV Zosyn, add Vanco Appreciate ID Input Surgery on board added Plavix as patient has rest pain Obtain wound GS, culture DM Type I ISS, Lantus Monitor BGs Hypoglycemic this morning check A1C Pharmacy Consulted for Glycemic management CAD Stable Continue Aspirin, statin, beta-theo HTN: stable continue lisinopril, metoprolol PAD Continue aspirin Plavix started Possible Subclinical Hypothyroidism: Elevated TSH, normal free T4 Continue levothyroxine Repeat Thyroid function test as outpatient DVT Px: Heparin SQ Disposition: Per Primary Team Vital Signs: Date Time Temp Pulse Resp B/P (MAP) Pulse Ox O2 Delivery O2 Flow Rate FiO2 12/18/17 11:19 96 Room Air 12/18/17 07:54 96 Room Air 12/18/17 07:52 36.5 70 15 156/62 (93) 96 Room Air 12/18/17 07:29 Room Air 12/17/17 23:45 Room Air 12/17/17 23:22 37.0 87 18 143/65 (91) 100 Room Air 12/17/17 22:28 99 Room Air 12/17/17 21:20 72 152/64 (93) 12/17/17 19:30 Room Air 12/17/17 15:30 Room Air 12/17/17 14:20 36.8 70 18 131/71 99 Room Air Lab Results: Results Past 24 Hours Test 12/17/17 16:03 12/17/17 17:00 12/17/17 17:54 12/17/17 20:58 Range/Units Creatinine 0.74 0.78 0.60-1.40 mg/dl Est Creatinine Clear Calc Drug Dose 83.5 79.2 ml/min Estimated GFR () 113.8 111.3 Estimated GFR (Non- 98.2 96.1 Bedside Glucose 137 270 70-99 mg/dl White Blood Count 14.94 4.8-10.8 K/uL Red Blood Count 3.99 4.7-6.1 M/uL Hemoglobin 11.8 14.0-18.0 g/dL Hematocrit 34.7 42-52 % Mean Corpuscular Volume 87.0 80-100 fL Mean Corpuscular Hemoglobin 29.6 25-34 pg Mean Corpuscular Hemoglobin Concent 34.0 32-36 g/dl RDW Standard Deviation 43.1 36.4-46.3 fL RDW Coefficient of Variation 13.6 11.5-14.5 % Platelet Count 403 130-400 K/uL Mean Platelet Volume 9.5 7.4-10.4 fL Sodium Level 133 136-145 mmol/L Potassium Level 5.2 3.5-5.1 mmol/L Chloride Level 98 98-107 mmol/L Carbon Dioxide Level 30 21-32 mmol/L Anion Gap 4.0 3-11 mmol/L Blood Urea Nitrogen 19 7-18 mg/dl BUN/Creatinine Ratio 24.5 10-20 Random Glucose 227 70-99 mg/dl Calcium Level 9.2 8.5-10.1 mg/dl Thyroid Stimulating Hormone (TSH) 11.700 0.300-4.500 uIu/ml Free Thyroxine 0.94 0.80-1.60 ng/dl Test 12/18/17 05:35 12/18/17 06:57 12/18/17 07:11 12/18/17 07:35 Range/Units White Blood Count 11.82 4.8-10.8 K/uL Red Blood Count 3.94 4.7-6.1 M/uL Hemoglobin 11.4 14.0-18.0 g/dL Hematocrit 34.1 42-52 % Mean Corpuscular Volume 86.5 80-100 fL Mean Corpuscular Hemoglobin 28.9 25-34 pg Mean Corpuscular Hemoglobin Concent 33.4 32-36 g/dl Platelet Count 393 130-400 K/uL Mean Platelet Volume 9.4 7.4-10.4 fL Neutrophils (%) (Auto) 67.8 % Lymphocytes (%) (Auto) 20.2 % Monocytes (%) (Auto) 6.9 % Eosinophils (%) (Auto) 4.5 % Basophils (%) (Auto) 0.4 % Neutrophils # (Auto) 8.02 1.4-6.5 K/uL Lymphocytes # (Auto) 2.39 1.2-3.4 K/uL Monocytes # (Auto) 0.81 0.11-0.59 K/uL Eosinophils # (Auto) 0.53 0-0.5 K/uL Basophils # (Auto) 0.05 0-0.2 K/uL RDW Standard Deviation 42.6 36.4-46.3 fL RDW Coefficient of Variation 13.5 11.5-14.5 % Immature Granulocyte % (Auto) 0.2 % Immature Granulocyte # (Auto) 0.02 0.00-0.02 K/uL Prothrombin Time 10.3 9.0-12.0 SECONDS Prothromb Time International Ratio 1.0 0.9-1.1 Activated Partial Thromboplast Time 25.6 21.0-31.0 SECONDS Partial Thromboplastin Ratio 1.0 Sodium Level 136 136-145 mmol/L Potassium Level 3.8 3.5-5.1 mmol/L Chloride Level 100 98-107 mmol/L Carbon Dioxide Level 28 21-32 mmol/L Anion Gap 8.0 3-11 mmol/L Blood Urea Nitrogen 13 7-18 mg/dl Creatinine 0.71 0.60-1.40 mg/dl Est Creatinine Clear Calc Drug Dose 87.1 ml/min Estimated GFR () 115.7 Estimated GFR (Non- 99.9 BUN/Creatinine Ratio 19.0 10-20 Random Glucose 46 70-99 mg/dl Calcium Level 9.2 8.5-10.1 mg/dl Total Bilirubin 0.3 0.2-1 mg/dl Aspartate Amino Transf (AST/SGOT) 48 15-37 U/L Alanine Aminotransferase (ALT/SGPT) 40 12-78 U/L Alkaline Phosphatase 104 45-117 U/L Total Protein 7.1 6.4-8.2 gm/dl Albumin 3.4 3.4-5.0 gm/dl Globulin 3.7 2.5-4.0 gm/dl Albumin/Globulin Ratio 0.9 0.9-2 Bedside Glucose 57 60 93 70-99 mg/dl Test 12/18/17 11:51 Range/Units Bedside Glucose 166 70-99 mg/dl
[2017-12-18] MEDS ORDERED: VANCOMYCIN CONSULT ACTIVE PRN (13:30)
--- NOTE | 2017-12-18 14:06 | Pharmacy Progress Note ---
Pharmacy Abx Initial Consult Date of Service Dec 18, 2017. Pharmacy Dosing Scope Date of Consult: 12/18/17 Consultation requested by: Dr. Low Pharmacy is consulted to initiate Vancomycin & Zosyn IV dosing therapy, order appropriate labs and adjust drug dose/frequency. Subjective The patient is a 62 year old male admitted on Dec 17, 2017 at 13:51. Objective Height (Feet): 5 Height (Inches): 4.00 Weight (Kilograms): 57.800 (BMI 21.9) Vital Signs (Past 12Hrs) Vital Signs Past 12 Hours Date Time Temp Pulse Resp B/P (MAP) Pulse Ox O2 Delivery O2 Flow Rate FiO2 12/18/17 11:19 96 Room Air 12/18/17 07:54 96 Room Air 12/18/17 07:52 36.5 70 15 156/62 (93) 96 Room Air 12/18/17 07:29 Room Air Lab Results (24Hrs) Laboratory Tests (24 Hours) Test 12/18/17 05:35 White Blood Count 11.82 K/uL (4.8-10.8) H Red Blood Count 3.94 M/uL (4.7-6.1) L Hemoglobin 11.4 g/dL (14.0-18.0) L Hematocrit 34.1 % (42-52) L Mean Corpuscular Volume 86.5 fL (80-100) Mean Corpuscular Hemoglobin 28.9 pg (25-34) Mean Corpuscular Hemoglobin Concent 33.4 g/dl (32-36) Platelet Count 393 K/uL (130-400) Mean Platelet Volume 9.4 fL (7.4-10.4) Neutrophils (%) (Auto) 67.8 % Lymphocytes (%) (Auto) 20.2 % Monocytes (%) (Auto) 6.9 % Eosinophils (%) (Auto) 4.5 % Basophils (%) (Auto) 0.4 % Neutrophils # (Auto) 8.02 K/uL (1.4-6.5) H Lymphocytes # (Auto) 2.39 K/uL (1.2-3.4) Monocytes # (Auto) 0.81 K/uL (0.11-0.59) H Eosinophils # (Auto) 0.53 K/uL (0-0.5) H Basophils # (Auto) 0.05 K/uL (0-0.2) Item Value Date Time Creatinine 0.71 mg/dl 12/18/17 0535 Est Creatinine Clear Calc Drug Dose 87.1 ml/min 12/18/17 0535 Risk Factors for Resistance * Hospitalization for 48 hours or more within the past 90 days * Antimicrobial use within the last 90 days Zosyn/Augmentin Assessment & Plan Assessment 62 year old male for right foot abscess. He was recently admitted (10/2017) for right 2nd toe osteomyelitis/gangrene. Underwent a right 2nd toe amputation. The wound culture grew coag neg. staph and corynebacterium. He was discharged on Augmentin, which has been completed. Has had persistent drainage from amputation site. Over last few days has developed an ulcer on the tight medial aspect of right great toe. Plan Vancomycin/Zosyn for treatment of foot infection Vancomycin IV * Estimated pkinetics: Vd 0.7L/kg; Gurvinder ~0.077 hr-1; T1/2 ~ 9 hr; CrCl 87.1 * Loading dose: 1500 mg (~25.9 mg/kg) * Maintenance dose: 750 mg IV (~13 mg/kg) every 10 hours * Goal trough level : 15 to 20 mcg/mL * Trough level ordered for 12/20/17 @ 0530 Piperacillin/tazobactam * 3.375 g bolus administered over 30 minutes, then 3.375 g IV extended infusion every 8 hours for CrCl greater than 20 mL/min OR every 12 hours for CrCl 20 mL/ min or less and dialysis. Pharmacy will continue to follow and will adjust dose/frequency as necessary. Thank you.
[2017-12-18] MEDS: VANCOMYCIN IV 1,500 MG in SODIUM CHLORIDE 0.9% 500ML 500 ML IV ONE ×2 (14:26→15:50)
[2017-12-18 14:43] VITALS: BMI 21.9
[2017-12-18 14:53] VITALS: BP 142/64; PULSE 79; TEMP 36.8; O2SAT 97
[2017-12-18] MEDS: INSULIN GLARGINE SOLOSTAR 100 UNITS/ML 3 ML PEN SC SCH (21:21)
[2017-12-18 21:24] VITALS: BP 149/57; PULSE 89
[2017-12-18 23:05] VITALS: BP 143/62; PULSE 77; TEMP 36.7; O2SAT 98
[2017-12-18] MEDS: VANCOMYCIN IV 750 MG in SODIUM CHLORIDE 0.9% 250ML 250 ML IV SCH (23:59)
[2017-12-19] MEDS: PIPERACILL/TAZOBAC IV 3.375 GM in D5W 100ML IV SCH ×3 (05:39→21:35)
[2017-12-19] MEDS: LEVOTHYROXINE 25 MCG TAB PO SCH (05:40)
[2017-12-19 07:01] LABS: HEMATOCRIT 32.8 % (42-52); HEMOGLOBIN 11.2 g/dL (14.0-18.0); MEAN CELL VOLUME 85.6 fL (80-100); MEAN CORPUSCULAR HEMOGLOBIN 29.2 pg (25-34); MEAN CORPUSCULAR HGB CONC 34.1 g/dl (32-36); MEAN PLATELET VOLUME 9.3 fL (7.4-10.4); PLATELET COUNT 375 K/uL (130-400); RED CELL DISTRIBUTION WIDTH CV 13.8 % (11.5-14.5); RED CELL DISTRIBUTION WIDTH SD 42.7 fL (36.4-46.3); WHITE BLOOD COUNT 9.74 K/uL (4.8-10.8)
[2017-12-19 07:30] VITALS: BP 138/64; PULSE 80; TEMP 36.8; O2SAT 97
[2017-12-19 07:36] LABS: CALCIUM 8.7 mg/dl (8.5-10.1); CREATININE 0.91 mg/dl (0.60-1.40); POTASSIUM 4.3 mmol/L (3.5-5.1)
[2017-12-19 08:02] VITALS: O2SAT 97
--- NOTE | 2017-12-19 08:21 | SURGERY PROGRESS NOTE ---
DATE: 12/19/2017 Casa feels a little bit better today. He said he has less discomfort in his foot. I discussed the situation with Dr. Butts, infectious disease yesterday. Vancomycin had been added to the Zosyn. Our plan is hopefully to try to salvage as much as possible of this lower extremity. The patient's last vitals showed a temperature of 36.7, pulse 77, respirations 18, blood pressure 143/62, O2 sats 96 on room air. Laboratory, WBCs are 9.74, hemoglobin is 11.2. On the right foot, there is some dry almost a skin in the lateral aspect of the great toe. There is no evidence of any drainage. The toe itself is pink with fair capillary refill, but of note, the patient is sitting up most of the time. There is some skin breakdown between the base of the great first toe and the amputation site. The amputation site itself had some moist tissue, but the edges appeared to be closing in more. At this point, we will continue antibiotic therapy in the near future and reevaluate him and make a decision what best course to take once we finalize a response to the present therapy. At present time, I do not think the patient is a candidate for any VAC system at the base of the amputation of the second toe.
[2017-12-19 08:46] LABS: HEMOGLOBIN A1C 9.5 % (4.5-5.6)
[2017-12-19] MEDS: CLOPIDOGREL BISULFATE 75 MG TAB PO SCH (09:00)
[2017-12-19] MEDS: ATORVASTATIN 40 MG TAB PO SCH (09:00)
[2017-12-19] MEDS ORDERED: ASPIRIN 325 MG ECTAB PO SCH (09:00)
[2017-12-19] MEDS: LISINOPRIL 20 MG TAB PO SCH (09:01)
[2017-12-19] MEDS: ASPIRIN 81 MG ECTAB PO SCH (09:02)
[2017-12-19] MEDS: METOPROLOL TARTRATE 50 MG TAB PO SCH ×2 (09:02→21:24)
[2017-12-19] MEDS: AMLODIPINE BESYLATE 5 MG TAB PO SCH (09:02)
[2017-12-19] MEDS: INSULIN ASPART 100 UNITS/ML 3 ML PEN SC SCH ×4 (09:07→21:34)
[2017-12-19] MEDS: HEPARIN SOD 5000 UNIT/0.5 ML CARP SQ SCH ×2 (09:08→21:35)
[2017-12-19] MEDS: DOCUSATE SODIUM 100 MG CAP PO SCH ×2 (09:20→21:24)
--- NOTE | 2017-12-19 10:02 | Pharmacy Progress Note ---
Pharmacy Glycemic Short Note 2 Date of Service Dec 19, 2017. OUTPATIENT ANTIDIABETIC REGIMEN: * Lantus 15 units qPM * Novolog 4 units with meals + sliding scale * A1c = 9.5 % 12/19/2017 Test 12/18/17 11:51 12/18/17 17:00 12/18/17 20:43 12/19/17 06:40 Bedside Glucose 166 mg/dl (70-99) 318 mg/dl (70-99) 279 mg/dl (70-99) Random Glucose 170 mg/dl (70-99) Test 12/19/17 08:02 Bedside Glucose 189 mg/dl (70-99) ASSESSMENT: 12/19/17 * Mr. Andre received 30 units of insulin yesterday * No change to causes of insulin resistance * Postprandial BSGs were significantly elevated later yesterday. I not sure if this was due to correction of hypoglycemia in the AM and then not enough prandial insulin with meals? Will plan to tighten CF/CR slightly (was done on a recent admission) but leave the HS parameters where they are. * Fasting BSG is elevated this AM but I'm hesitant to increase the basal with the severe low yesterday AM. Will wait until a trend is seen prior to making further changes. 12/18/17 * 62 y/o male admitted with R foot abscess, well known to the pharmacy glycemic service from previous admissions. He is a fairly brittle type 1 diabetic, managed on Lantus and Novolog as an outpatient. * Pharmacy consulted this AM after patient sustained a severe episode of hypoglycemia this AM - treated with 45 gm CHO as per nursing note * As per recent CDE notes, he typically has overnight lows at home so he eats a large amt at bedtime to increase his BSG and prevent the overnight low. To prevent this on the inpatient side, will plan to decrease his basal. I did see that an HS snack was ordered but will still need covered with bolus insulin. PLAN FOR INPATIENT GLYCEMIC CONTROL: * Basal insulin - no change * Lantus 13 units SQ qHS * Bolus insulin - tighten parameters with meals only * NovoLog per scale ACHS or Q6hrs while NPO * Goal Range: Low 110 mg/dL - High 150 mg/dL * Correction Factor: 35 mg/dL/unit (50 mg/dL/unit at HS) * Nutritional / Prandial insulin per carb ratio of 1 unit per 12 grams CHO consumed (1 unit per 20 gm at HS) PLAN FOR DISCHARGE: * Patient is a very brittle type 1 diabetic * Would recommend to discharge on outpatient regimen with close f/u with PCP. Need to also provide education to not snack so much at night just to prevent lows in the AM. If he is truly having these lows, consider decreasing Lantus to 13 units qHS.
[2017-12-19] MEDS: VANCOMYCIN IV 750 MG in SODIUM CHLORIDE 0.9% 250ML 250 ML IV SCH ×2 (10:27→19:34)
--- NOTE | 2017-12-19 10:31 | Hospitalist Progress Note ---
Hospitalist Progress Note Date of Service Dec 19, 2017. (Roberta Leo CRNP) Subjective Patient seen and examined. Sitting up in the chair. Patient reports feeling well. Denies pain. No chest pain, shortness of breath, lightheadedness, nausea. (Roberta Leo CRNP) Pt evaluation today including: conversation w/ patient, physical exam, chart review, lab review Seen and examined at bedside Denies any foot pain today Denies chest pain, SOB, dizziness No other complaints (Darío Low MD) Objective Vital Signs Date Time Temp Pulse Resp B/P (MAP) Pulse Ox O2 Delivery O2 Flow Rate FiO2 12/19/17 08:02 97 Room Air 12/19/17 07:30 36.8 80 14 138/64 (88) 97 Room Air 12/19/17 00:00 Room Air 12/18/17 23:05 36.7 77 18 143/62 (89) 98 Room Air 12/18/17 21:24 89 149/57 (87) 12/18/17 15:30 Room Air 12/18/17 14:53 36.8 79 16 142/64 (90) 97 12/18/17 11:19 96 Room Air (Roberta Leo CRNP) Physical Exam General Appearance: WD/WN, no apparent distress Respiratory/Chest: chest non-tender, lungs clear, normal breath sounds, no respiratory distress Cardiovascular: regular rate, rhythm, no edema, no murmur, + pertinent finding (diminished right pedal pulse) Abdomen: normal bowel sounds, non tender, soft Neurologic/Psychiatric: alert, oriented x 3 Skin: + pertinent finding (moist yellow/white tissue noted to right second toe amputation site; yellow tissue noted to the base of the toes on the plantar surface ) (Roberta Leo CRNP) Notes: General Appearance:Moderately built and nourished, no apparent distress Head: normocephalic, Atraumatic Eyes: normal inspection, EOMI, PERRL Neck: supple, Trachea midline Respiratory/Chest: Normal breath sounds, CTA Cardiovascular: S1, S2, No murmur Abdomen/GI:Soft, Non tender, Bowel sounds present Extremities/Musculoskelatal:normal inspection, no edema, Left BKA, Right foot wound/drainage with ulceration Neurologic/Psych:AAOX3, grossly no focal neurological deficits Skin:normal color,warm (Darío Low MD) Laboratory Results Item Value Date Time White Blood Count 9.74 K/uL 12/19/17 0640 Hemoglobin 11.2 g/dL L 12/19/17 0640 Hematocrit 32.8 % L 12/19/17 0640 Platelet Count 375 K/uL 12/19/17 0640 Sodium Level 132 mmol/L L 12/19/17 0640 Potassium Level 4.3 mmol/L 12/19/17 0640 Blood Urea Nitrogen 12 mg/dl 12/19/17 0640 Creatinine 0.91 mg/dl 12/19/17 0640 (Roberta Leo CRNP) Assessment and Plan RIGHT FOOT ABSCESS -History of right second toe osteomyelitis/gangrene status post amputation on ; wound cultures grew coag negative staph and corynebacterium -being managed by general surgery -remains afebrile, WBC 9.7K -on Vanco (day 2) and Zosyn (day 3) -wound culture growing gram negative bacilli -ID following DM TYPE I -Hgb A1c 9.5 08/2017 -Continue Lantus and NovoLog -glycemic consult CAD -Stable, no reports of chest pain -Continue aspirin, statin, beta-theo HYPERTENSION -BP stable, continue lisinopril and metoprolol PAD -full dose aspirin changed to 81mg and Plavix added due to resting pain POSSIBLE SUBCLINICAL HYPOTHYROIDISM -During previous admission, patient was noted to have an elevated TSH however normal free T4 -He was started on low-dose levothyroxine at discharge however has since run out of the prescription -Question if recent abnormal TSH was secondary to an acute phase reactant from infection -TSH 11.7, normal free T4 -outpatient follow up DVT PROPHYLAXIS -Teds/SCDs as per general surgery (Roberta Leo CRNP) Right Foot Infection 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 Continue IV Zosyn, Vanco for now Wound culture; Gram Negative bacilli MRSA screen negative Plan to taper down Abx as able Appreciate ID Input Surgery following DM Type I ISS, Lantus Monitor BGs Hypoglycemic this morning A1C:9.5 Pharmacy Consulted for Glycemic management CAD Stable Continue Aspirin, statin, beta-theo HTN: stable continue lisinopril, metoprolol PAD Continue aspirin, Plavix Possible Subclinical Hypothyroidism: Elevated TSH, normal free T4 Continue levothyroxine Repeat Thyroid function test as outpatient DVT Px: Heparin SQ Disposition: Per Primary Team (Darío Low MD)
--- NOTE | 2017-12-19 10:41 | Infectious Disease Progress Nt ---
Progress Note Date of Service Dec 19, 2017. Subjective Pt evaluation today including: conversation w/ patient, physical exam, chart review, lab review, review of studies, conversation w/ immigration consultant, review of inpatient medication list Patient more comfortable today, denies pain in his foot. Remains afebrile. Cultures growing gram-negative bacilli. All Other Systems: Reviewed and Negative Medications Current Inpatient Medications Medications (Trade) Dose Ordered Sig/Annette Route Start Time Stop Time Status Last Admin Dose Admin Ondansetron HCl (Zofran Inj) 4 mg Q4H PRN IV 12/17/17 14:30 01/16/18 14:29 Acetaminophen (Tylenol Tab) 650 mg Q6H PRN PO 12/17/17 14:30 01/16/18 14:29 Oxycodone/ Acetaminophen (Percocet 5-325mg Tab) 1 tab Q4H PRN PO 12/17/17 14:30 12/31/17 14:29 12/18/17 09:28 1 TAB Morphine Sulfate (MoRPHine SULFATE INJ) 2 mg Q3HWA PRN IV 12/17/17 14:30 12/31/17 14:29 Oxycodone/ Acetaminophen (Percocet 5-325mg Tab) 2 tab Q4H PRN PO 12/17/17 14:30 12/31/17 14:29 12/18/17 00:44 2 TAB Morphine Sulfate (MoRPHine SULFATE INJ) 4 mg Q3HWA PRN IV 12/17/17 14:30 12/31/17 14:29 Miscellaneous Information (Consult) 1 ea UD PRN N/A 12/17/17 15:45 01/16/18 15:44 Heparin Sodium (Porcine) (Heparin Sq 5000 Unit/0.5ml) 5,000 unit Q12 SQ 12/18/17 09:00 01/17/18 08:59 12/19/17 09:08 5,000 UNIT Amlodipine Besylate (Norvasc Tab) 5 mg DAILY PO 12/18/17 09:00 01/17/18 08:59 12/19/17 09:02 5 MG Atorvastatin Calcium (Lipitor Tab) 40 mg DAILY PO 12/18/17 09:00 01/17/18 08:59 12/19/17 09:00 40 MG Lisinopril (Zestril Tab) 20 mg DAILY PO 12/18/17 09:00 01/17/18 08:59 12/19/17 09:01 20 MG Metoprolol Tartrate (Lopressor Tab) 50 mg BID PO 12/17/17 21:00 01/16/18 20:59 12/19/17 09:02 50 MG Glucose (Glucose 40% Gel) 15-30 GRAMS 15 GRAMS... UD PRN PO 12/17/17 18:00 01/16/18 17:59 12/18/17 06:57 30 GM Glucose (Glucose Chew Tab) 4-8 Tablets 4 Tabl... UD PRN PO 12/17/17 18:00 01/16/18 17:59 Dextrose (Dextrose 50% 50ML Syringe) 25-50ML 25ML FOR ... UD PRN IV 12/17/17 18:00 01/16/18 17:59 Glucagon (Glucagon Inj) 1 mg UD PRN SQ 12/17/17 18:00 01/16/18 17:59 Carbohydrates (Carbohydrates For Hypoglycemia) 15-30 GRAMS 15 grams if BSG 54-69... UD PRN PO 12/17/17 18:00 01/16/18 17:59 12/18/17 06:58 30 GM Clopidogrel Bisulfate (plAVix TAB) 75 mg QAM PO 12/18/17 09:00 01/17/18 08:59 12/19/17 09:00 75 MG Miscellaneous Information (Consult Glycemic Management Pharmacy) 1 UD PRN N/A 12/18/17 09:05 01/17/18 09:04 Insulin Aspart (novoLOG ASPART) SLIDING SCALE If C... AC DE 12/18/17 12:00 01/17/18 11:59 12/19/17 09:07 6 UNITS Insulin Glargine (Lantus Solostar Pen) 13 units QPM SC 12/18/17 21:00 01/17/18 20:59 12/18/17 21:21 13 UNITS Insulin Aspart (novoLOG ASPART) SLIDING SCALE If C... HS SC 12/18/17 21:00 01/17/18 20:59 12/18/17 21:21 3 UNITS Vancomycin HCl (Consult) 1 UD PRN N/A 12/18/17 13:30 01/17/18 13:29 Piperacillin Sod/ Tazobactam Sod 3.375 gm/Dextrose 115 ml @ 28.75 mls/ hr Q8H IV 12/18/17 14:00 12/27/17 13:59 12/19/17 05:39 28.75 MLS/HR Levothyroxine Sodium (Synthroid Tab) 25 mcg DAILYBB PO 12/19/17 06:00 01/18/18 05:59 12/19/17 05:40 25 MCG Aspirin (Ecotrin Tab) 81 mg DAILY PO 12/19/17 09:00 01/18/18 08:59 12/19/17 09:02 81 MG Vancomycin HCl 750 mg/Sodium Chloride 265 ml @ 125 mls/hr Q10H IV 12/19/17 00:00 12/29/17 00:00 12/19/17 10:27 125 MLS/HR Docusate Sodium (coLACE CAP) 100 mg BID PO 12/19/17 09:00 01/18/18 08:59 12/19/17 09:20 100 MG Objective Vital Signs Date Time Temp Pulse Resp B/P (MAP) Pulse Ox O2 Delivery O2 Flow Rate FiO2 12/19/17 08:02 97 Room Air 12/19/17 07:30 36.8 80 14 138/64 (88) 97 Room Air 12/19/17 00:00 Room Air 12/18/17 23:05 36.7 77 18 143/62 (89) 98 Room Air 12/18/17 21:24 89 149/57 (87) 12/18/17 15:30 Room Air 12/18/17 14:53 36.8 79 16 142/64 (90) 97 12/18/17 11:19 96 Room Air Physical Exam General Appearance: WD/WN, no apparent distress Eyes: normal inspection, EOMI, sclerae normal ENT: normal ENT inspection, pharynx normal Neck: supple, no adenopathy, thyroid normal, trachea midline Respiratory/Chest: chest non-tender, lungs clear, normal breath sounds, no respiratory distress Cardiovascular: regular rate, rhythm, no gallop, no murmur Abdomen: normal bowel sounds, non tender, soft, no organomegaly Extremities: non-tender, no calf tenderness, + slow capillary refill Neurologic/Psychiatric: alert, oriented x 3 Skin: normal color, no rash, + pertinent finding (Right foot swelling and erythema slightly improved) Lymphatic: no adenopathy Laboratory Results Date/Time Source Procedure Growth Status 12/18/17 14:00 Nasal MRSA DNA Surveillance Screen - Final Specimen Negative for MRSA by DNA Probe Complete 12/18/17 14:00 Drainage - Surface Foot Gram Stain - Final Resulted 12/18/17 14:00 Wound Culture - Preliminary Gram Negative Bacilli Resulted Last 24 Hours Test 12/18/17 11:51 12/18/17 17:00 12/18/17 20:43 12/19/17 06:40 Bedside Glucose 166 mg/dl 318 mg/dl 279 mg/dl White Blood Count 9.74 K/uL Red Blood Count 3.83 M/uL Hemoglobin 11.2 g/dL Hematocrit 32.8 % Mean Corpuscular Volume 85.6 fL Mean Corpuscular Hemoglobin 29.2 pg Mean Corpuscular Hemoglobin Concent 34.1 g/dl RDW Standard Deviation 42.7 fL RDW Coefficient of Variation 13.8 % Platelet Count 375 K/uL Mean Platelet Volume 9.3 fL Sodium Level 132 mmol/L Potassium Level 4.3 mmol/L Chloride Level 100 mmol/L Carbon Dioxide Level 26 mmol/L Anion Gap 6.0 mmol/L Blood Urea Nitrogen 12 mg/dl Creatinine 0.91 mg/dl Est Creatinine Clear Calc Drug Dose 67.9 ml/min Estimated GFR () 103.6 Estimated GFR (Non- 89.4 BUN/Creatinine Ratio 13.4 Random Glucose 170 mg/dl Estimated Average Glucose 226 mg/dl Hemoglobin A1c 9.5 % Calcium Level 8.7 mg/dl Test 12/19/17 08:02 Bedside Glucose 189 mg/dl Assessment and Plan 62-year-old male with severe peripheral arterial disease and diabetes mellitus now with worsening right foot infection following amputation of his right second toe. Patient to be continued on current antibiotics pending final culture results, with further management to be determined by clinical response to antibiotics. Will follow.
[2017-12-19 13:35] VITALS: Ht 162.6 cm; Wt 57.8 kg
[2017-12-19 15:17] VITALS: BP 163/70; PULSE 80; TEMP 37.1; O2SAT 98
[2017-12-19 21:22] VITALS: BP 146/64; PULSE 80
[2017-12-19] MEDS: INSULIN GLARGINE SOLOSTAR 100 UNITS/ML 3 ML PEN SC SCH (21:33)
[2017-12-19 23:07] VITALS: BP 157/52; PULSE 72; TEMP 36.8; O2SAT 97
[2017-12-20] MEDS ORDERED: VANCOMYCIN TROUGH ONE (05:30)
[2017-12-20] MEDS: LEVOTHYROXINE 25 MCG TAB PO SCH (05:31)
[2017-12-20] MEDS: VANCOMYCIN IV 750 MG in SODIUM CHLORIDE 0.9% 250ML 250 ML IV SCH (05:31)
[2017-12-20] MEDS: PIPERACILL/TAZOBAC IV 3.375 GM in D5W 100ML IV SCH ×2 (05:31→14:29)
[2017-12-20 05:38] LABS: HEMATOCRIT 33.3 % (42-52); HEMOGLOBIN 11.1 g/dL (14.0-18.0); MEAN CELL VOLUME 85.6 fL (80-100); MEAN CORPUSCULAR HEMOGLOBIN 28.5 pg (25-34); MEAN CORPUSCULAR HGB CONC 33.3 g/dl (32-36); MEAN PLATELET VOLUME 9.3 fL (7.4-10.4); PLATELET COUNT 358 K/uL (130-400); RED CELL DISTRIBUTION WIDTH CV 13.8 % (11.5-14.5); RED CELL DISTRIBUTION WIDTH SD 42.9 fL (36.4-46.3)
[2017-12-20 06:02] LABS: CALCIUM 8.9 mg/dl (8.5-10.1); CREATININE 0.8 mg/dl (0.60-1.40); POTASSIUM 3.9 mmol/L (3.5-5.1)
[2017-12-20 07:07] VITALS: BP 149/63; PULSE 77; TEMP 36.6; O2SAT 98
[2017-12-20] MEDS: ATORVASTATIN 40 MG TAB PO SCH (08:53)
[2017-12-20] MEDS: CLOPIDOGREL BISULFATE 75 MG TAB PO SCH (08:53)
[2017-12-20] MEDS: LISINOPRIL 20 MG TAB PO SCH (08:53)
[2017-12-20] MEDS: METOPROLOL TARTRATE 50 MG TAB PO SCH ×2 (08:54→21:23)
[2017-12-20] MEDS: AMLODIPINE BESYLATE 5 MG TAB PO SCH (08:54)
[2017-12-20] MEDS: ASPIRIN 81 MG ECTAB PO SCH (08:54)
[2017-12-20] MEDS: INSULIN ASPART 100 UNITS/ML 3 ML PEN SC SCH ×3 (09:01→18:14)
[2017-12-20] MEDS: HEPARIN SOD 5000 UNIT/0.5 ML CARP SQ SCH ×2 (09:02→21:24)
--- NOTE | 2017-12-20 09:27 | Surgery Progress Note ---
Surgery Progress Note Date of Service Dec 20, 2017. Subjective + feeling well Objective Vital Signs: Date Time Temp Pulse Resp B/P (MAP) Pulse Ox O2 Delivery O2 Flow Rate FiO2 12/20/17 08:00 Room Air 12/20/17 07:07 36.6 77 16 149/63 (91) 98 Room Air 12/19/17 23:40 Room Air 12/19/17 23:07 36.8 72 18 157/52 (87) 97 Room Air 12/19/17 21:22 80 146/64 (91) 12/19/17 16:00 Room Air 12/19/17 15:17 37.1 80 18 163/70 (101) 98 Room Air Extremities: + pertinent finding (right foot bandaged being changed by wound care) Laboratory Results: Results Past 24 Hours Test 12/19/17 11:59 12/19/17 17:07 12/19/17 20:39 12/20/17 05:24 Range/Units Bedside Glucose 294 167 309 70-99 mg/dl White Blood Count 10.00 4.8-10.8 K/uL Red Blood Count 3.89 4.7-6.1 M/uL Hemoglobin 11.1 14.0-18.0 g/dL Hematocrit 33.3 42-52 % Mean Corpuscular Volume 85.6 80-100 fL Mean Corpuscular Hemoglobin 28.5 25-34 pg Mean Corpuscular Hemoglobin Concent 33.3 32-36 g/dl RDW Standard Deviation 42.9 36.4-46.3 fL RDW Coefficient of Variation 13.8 11.5-14.5 % Platelet Count 358 130-400 K/uL Mean Platelet Volume 9.3 7.4-10.4 fL Sodium Level 132 136-145 mmol/L Potassium Level 3.9 3.5-5.1 mmol/L Chloride Level 101 98-107 mmol/L Carbon Dioxide Level 25 21-32 mmol/L Anion Gap 6.0 3-11 mmol/L Blood Urea Nitrogen 12 7-18 mg/dl Creatinine 0.80 0.60-1.40 mg/dl Est Creatinine Clear Calc Drug Dose 77.3 ml/min Estimated GFR () 110.2 Estimated GFR (Non- 95.1 BUN/Creatinine Ratio 15.0 10-20 Random Glucose 56 70-99 mg/dl Calcium Level 8.9 8.5-10.1 mg/dl Vancomycin Level Trough 10.4 SEE COMMENT mcg/ml Test 12/20/17 08:01 Range/Units Bedside Glucose 75 70-99 mg/dl Assessment & Plan right foot infection, DM, PAD WBC improved continue IV vanco, zosyn ID following Dr. Peña will be following over the weekend
[2017-12-20] MEDS: DOCUSATE SODIUM 100 MG CAP PO SCH ×2 (09:57→21:24)
--- NOTE | 2017-12-20 11:46 | Pharmacy Progress Note ---
Pharmacy Glycemic Short Note 2 Date of Service Dec 20, 2017. OUTPATIENT ANTIDIABETIC REGIMEN: * Lantus 15 units qPM * Novolog 4 units with meals + sliding scale * A1c = 9.5 % 12/19/2017 * Item Value Date Time Bedside Glucose 189 mg/dl H 12/19/17 0802 Bedside Glucose 294 mg/dl H 12/19/17 1159 Bedside Glucose 167 mg/dl H 12/19/17 1707 Bedside Glucose 309 mg/dl H 12/19/17 2039 Bedside Glucose 75 mg/dl 12/20/17 0801 ASSESSMENT: * Pt has been receiving 30-35 units of insulin per day with near adequate control * Pt continues to have LOW AM fasting BSG. Most likely due to correctional insulin given at HS. Pt started that when he is at home he needs to have a snack before going to bed to prevent AM low. Do not need to correct/cover this or else LOW will result. Will change NovoLog to AC only (no HS coverage) * AM fasting BSG is low but this is from NovoLog. Will continue reduced basal insulin dosing that is ordered. If LOW again tomorrow without NovoLog at HS will further lower Lantus dosing vs move dosing to AM * post-prandial BSGs slightly elevated --> will tighten CR PLAN FOR INPATIENT GLYCEMIC CONTROL: * Basal insulin - no change * Lantus 13 units SQ qHS * Bolus insulin - tighten parameters with meals only * NovoLog per scale AC only. NO HS coverage * Goal Range: Low 110 mg/dL - High 140 mg/dL * Correction Factor: 30 mg/dL/unit * Nutritional / Prandial insulin per carb ratio of 1 unit per 10 grams CHO consumed (1 unit per 20 gm at HS) PLAN FOR DISCHARGE: * Patient is a very brittle type 1 diabetic * Would recommend to discharge on outpatient regimen with close f/u with PCP. Pt with recurrent LOWS in AM. Need to figure out root cause of Lows and adjust as needed. May consider decreasing Lantus to 13 units qHS vs moving dosing to AM or not administering any NovoLog at bedtime.
[2017-12-20 15:20] VITALS: BP 132/58; PULSE 84; TEMP 36.9; O2SAT 97
--- NOTE | 2017-12-20 15:30 | Progress Note ---
Internal Med Progress Note Date of Service: Dec 20, 2017. Provider Documentation: SUBJECTIVE: Seen and examined at bedside Doing well Denies foot pain Denies chest pain, SOB, dizziness No other complaints OBJECTIVE: Vital Signs-as noted below General Appearance:Moderately built and nourished, no apparent distress Head: normocephalic, Atraumatic Eyes: normal inspection, EOMI, PERRL Neck: supple, Trachea midline Respiratory/Chest: Normal breath sounds, CTA Cardiovascular: S1, S2, No murmur Abdomen/GI:Soft, Non tender, Bowel sounds present Extremities/Musculoskelatal:normal inspection, no edema, Left BKA, Right foot in dressing Neurologic/Psych:AAOX3, grossly no focal neurological deficits Skin:normal color,warm Lab data as noted below. 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 Continue IV Zosyn, Vanco>>> Transitioned to IV Ceftriaxone 2gm daily Will need 6 weeks of Abx. Discussed with ID Wound culture: Citrobacter MRSA screen negative Appreciate ID Input Surgery following DM Type I continue ISS, Lantus Monitor BGs Hypoglycemic this morning A1C:9.5 Pharmacy Consulted for Glycemic management CAD Stable Continue Aspirin, statin, beta-theo HTN: stable continue lisinopril, metoprolol PAD Continue aspirin, Plavix Possible Subclinical Hypothyroidism: Elevated TSH, normal free T4 Continue levothyroxine Repeat Thyroid function test as outpatient DVT Px: Heparin SQ Disposition: Per Primary Team Vital Signs: Date Time Temp Pulse Resp B/P (MAP) Pulse Ox O2 Delivery O2 Flow Rate FiO2 12/20/17 15:20 36.9 84 18 132/58 (82) 97 Room Air 12/20/17 08:00 Room Air 12/20/17 07:07 36.6 77 16 149/63 (91) 98 Room Air 12/19/17 23:40 Room Air 12/19/17 23:07 36.8 72 18 157/52 (87) 97 Room Air 12/19/17 21:22 80 146/64 (91) 12/19/17 16:00 Room Air Lab Results: Results Past 24 Hours Test 12/19/17 17:07 12/19/17 20:39 12/20/17 05:24 12/20/17 08:01 Range/Units Bedside Glucose 167 309 75 70-99 mg/dl White Blood Count 10.00 4.8-10.8 K/uL Red Blood Count 3.89 4.7-6.1 M/uL Hemoglobin 11.1 14.0-18.0 g/dL Hematocrit 33.3 42-52 % Mean Corpuscular Volume 85.6 80-100 fL Mean Corpuscular Hemoglobin 28.5 25-34 pg Mean Corpuscular Hemoglobin Concent 33.3 32-36 g/dl RDW Standard Deviation 42.9 36.4-46.3 fL RDW Coefficient of Variation 13.8 11.5-14.5 % Platelet Count 358 130-400 K/uL Mean Platelet Volume 9.3 7.4-10.4 fL Sodium Level 132 136-145 mmol/L Potassium Level 3.9 3.5-5.1 mmol/L Chloride Level 101 98-107 mmol/L Carbon Dioxide Level 25 21-32 mmol/L Anion Gap 6.0 3-11 mmol/L Blood Urea Nitrogen 12 7-18 mg/dl Creatinine 0.80 0.60-1.40 mg/dl Est Creatinine Clear Calc Drug Dose 77.3 ml/min Estimated GFR () 110.2 Estimated GFR (Non- 95.1 BUN/Creatinine Ratio 15.0 10-20 Random Glucose 56 70-99 mg/dl Calcium Level 8.9 8.5-10.1 mg/dl Vancomycin Level Trough 10.4 SEE COMMENT mcg/ml Test 12/20/17 11:57 Range/Units Bedside Glucose 268 70-99 mg/dl
[2017-12-20] MEDS: CEFTRIAXONE SOD INJ 2,000 MG in DEXTROSE 5% 50ML 50 ML IV SCH (16:05)
--- NOTE | 2017-12-20 20:15 | Infectious Disease Progress Nt ---
Progress Note Date of Service Dec 20, 2017. Subjective Pt evaluation today including: conversation w/ patient, physical exam, chart review, lab review, review of studies, conversation w/ business sales consultant, review of inpatient medication list Patient offers no new complaints today. Remains afebrile. Foot pain controlled. Cultures growing Citrobacter. All Other Systems: Reviewed and Negative Medications Current Inpatient Medications Medications (Trade) Dose Ordered Sig/Annette Route Start Time Stop Time Status Last Admin Dose Admin Ondansetron HCl (Zofran Inj) 4 mg Q4H PRN IV 12/17/17 14:30 01/16/18 14:29 Acetaminophen (Tylenol Tab) 650 mg Q6H PRN PO 12/17/17 14:30 01/16/18 14:29 Oxycodone/ Acetaminophen (Percocet 5-325mg Tab) 1 tab Q4H PRN PO 12/17/17 14:30 12/31/17 14:29 12/18/17 09:28 1 TAB Morphine Sulfate (MoRPHine SULFATE INJ) 2 mg Q3HWA PRN IV 12/17/17 14:30 12/31/17 14:29 Oxycodone/ Acetaminophen (Percocet 5-325mg Tab) 2 tab Q4H PRN PO 12/17/17 14:30 12/31/17 14:29 12/18/17 00:44 2 TAB Morphine Sulfate (MoRPHine SULFATE INJ) 4 mg Q3HWA PRN IV 12/17/17 14:30 12/31/17 14:29 Heparin Sodium (Porcine) (Heparin Sq 5000 Unit/0.5ml) 5,000 unit Q12 SQ 12/18/17 09:00 01/17/18 08:59 12/20/17 09:02 5,000 UNIT Amlodipine Besylate (Norvasc Tab) 5 mg DAILY PO 12/18/17 09:00 01/17/18 08:59 12/20/17 08:54 5 MG Atorvastatin Calcium (Lipitor Tab) 40 mg DAILY PO 12/18/17 09:00 01/17/18 08:59 12/20/17 08:53 40 MG Lisinopril (Zestril Tab) 20 mg DAILY PO 12/18/17 09:00 01/17/18 08:59 12/20/17 08:53 20 MG Metoprolol Tartrate (Lopressor Tab) 50 mg BID PO 12/17/17 21:00 01/16/18 20:59 12/20/17 08:54 50 MG Glucose (Glucose 40% Gel) 15-30 GRAMS 15 GRAMS... UD PRN PO 12/17/17 18:00 01/16/18 17:59 12/18/17 06:57 30 GM Glucose (Glucose Chew Tab) 4-8 Tablets 4 Tabl... UD PRN PO 12/17/17 18:00 01/16/18 17:59 Dextrose (Dextrose 50% 50ML Syringe) 25-50ML 25ML FOR ... UD PRN IV 12/17/17 18:00 01/16/18 17:59 Glucagon (Glucagon Inj) 1 mg UD PRN SQ 12/17/17 18:00 01/16/18 17:59 Carbohydrates (Carbohydrates For Hypoglycemia) 15-30 GRAMS 15 grams if BSG 54-69... UD PRN PO 12/17/17 18:00 01/16/18 17:59 12/18/17 06:58 30 GM Clopidogrel Bisulfate (plAVix TAB) 75 mg QAM PO 12/18/17 09:00 01/17/18 08:59 12/20/17 08:53 75 MG Miscellaneous Information (Consult Glycemic Management Pharmacy) 1 ea UD PRN N/A 12/18/17 09:05 01/17/18 09:04 Insulin Aspart (novoLOG ASPART) SLIDING SCALE If C... AC SC 12/18/17 12:00 01/17/18 11:59 12/20/17 18:14 10 UNITS Insulin Glargine (Lantus Solostar Pen) 13 units QPM SC 12/18/17 21:00 01/17/18 20:59 12/19/17 21:33 13 UNITS Levothyroxine Sodium (Synthroid Tab) 25 mcg DAILYBB PO 12/19/17 06:00 01/18/18 05:59 12/20/17 05:31 25 MCG Aspirin (Ecotrin Tab) 81 mg DAILY PO 12/19/17 09:00 01/18/18 08:59 12/20/17 08:54 81 MG Docusate Sodium (coLACE CAP) 100 mg BID PO 12/19/17 09:00 01/18/18 08:59 12/20/17 09:57 100 MG Ceftriaxone Sodium 2000 mg/ Dextrose 70 ml @ 100 mls/hr Q24H IV 12/20/17 16:00 12/30/17 15:59 12/20/17 16:05 100 MLS/HR Objective Vital Signs Date Time Temp Pulse Resp B/P (MAP) Pulse Ox O2 Delivery O2 Flow Rate FiO2 12/20/17 16:00 Room Air 12/20/17 15:20 36.9 84 18 132/58 (82) 97 Room Air 12/20/17 08:00 Room Air 12/20/17 07:07 36.6 77 16 149/63 (91) 98 Room Air 12/19/17 23:40 Room Air 12/19/17 23:07 36.8 72 18 157/52 (87) 97 Room Air 12/19/17 21:22 80 146/64 (91) Physical Exam General Appearance: WD/WN, no apparent distress Eyes: normal inspection, EOMI, sclerae normal ENT: normal ENT inspection, pharynx normal Neck: supple, no adenopathy, thyroid normal, trachea midline Respiratory/Chest: chest non-tender, lungs clear, normal breath sounds, no respiratory distress Cardiovascular: regular rate, rhythm, no gallop, no murmur Abdomen: normal bowel sounds, non tender, soft, no organomegaly Extremities: non-tender, no calf tenderness Neurologic/Psychiatric: alert, oriented x 3 Skin: normal color, warm/dry, no rash, + pertinent finding (Dressing intact right foot) Lymphatic: no adenopathy Laboratory Results RUN DATE: 12/20/17 [facility] LAB PAGE 1 RUN TIME: 1610 Specimen Inquiry PATIENT: TREE MONTELONGO LOC: [facility] U # : [id number] AGE/SX: 62/M ROOM: [facility] REG : 12/17/[address]: Butch Peña M : 1955 BED: 2 DIS : STATUS: ADM IN TLOC: SPEC #: [id number] GEOFF: 12/18/17 STATUS: COMP REQ #: [id number] RECD: 12/18/[address]: Darío Low MD SOURCE: DRAIN-SURF ENTR: 12/18/17 [facility] DR: Gilbert Butts MD SPDESC: FOOT Coppes, Leighann Zaldivar Desiree A. P.A. Ramondelli, Salvatore, M.D. ORDERED: SURF WND CU/[place] COMMENTS: Has Specimen Been Obtained/Collected? Y Procedure Result Verified Site GRAM STAIN Final 12/19/17-42 RESULT RARE WBCs SEEN FEW GRAM POSITIVE COCCI RARE GRAM NEGATIVE COCCI RARE GRAM NEGATIVE BACILLI SURFACE WOUND CULTURE Final 12/20/17-1610 Organism 1 CITROBACTER FREUNDII QUANITY MANY SENS SENSITIVITY TO FOLLOW +MIXWOUND PLUS HIGH COUNTS OF PROBABLE SKIN CRISTY 1. CITROBACTER FREUNDII Target Route Dose RX AB Cost M.I.C. IQ ------ ----- ------ -- ------ -------- - ------ TRIMET/SULFA S <=2/38 CEFOTAXIME S <=2 CEFTRIAXONE S <=1 CEFEPIME S <=4 IMIPENEM S <=1 GENTAMICIN S <=4 TOBRAMYCIN S <=4 AMIKACIN S <=16 CIPROFLOXACIN S <=1 LEVOFLOXACIN S <=2 ERTAPENEM S <=1 PIP/TAZO S <=16 S = SENSITIVE I = INTERMEDIATE R = RESISTANT END OF REPORT Last 24 Hours Test 12/19/17 20:39 12/20/17 05:24 12/20/17 08:01 12/20/17 11:57 Bedside Glucose 309 mg/dl 75 mg/dl 268 mg/dl White Blood Count 10.00 K/uL Red Blood Count 3.89 M/uL Hemoglobin 11.1 g/dL Hematocrit 33.3 % Mean Corpuscular Volume 85.6 fL Mean Corpuscular Hemoglobin 28.5 pg Mean Corpuscular Hemoglobin Concent 33.3 g/dl RDW Standard Deviation 42.9 fL RDW Coefficient of Variation 13.8 % Platelet Count 358 K/uL Mean Platelet Volume 9.3 fL Sodium Level 132 mmol/L Potassium Level 3.9 mmol/L Chloride Level 101 mmol/L Carbon Dioxide Level 25 mmol/L Anion Gap 6.0 mmol/L Blood Urea Nitrogen 12 mg/dl Creatinine 0.80 mg/dl Est Creatinine Clear Calc Drug Dose 77.3 ml/min Estimated GFR () 110.2 Estimated GFR (Non- 95.1 BUN/Creatinine Ratio 15.0 Random Glucose 56 mg/dl Calcium Level 8.9 mg/dl Vancomycin Level Trough 10.4 mcg/ml Test 12/20/17 16:55 Bedside Glucose 277 mg/dl Assessment and Plan 62-year-old male with severe peripheral arterial disease and diabetes mellitus now with worsening right foot infection following amputation of his right second toe. Culture growing fully sensitive Citrobacter, patient to be changed to IV ceftriaxone 2 g daily. Likely 6 weeks of IV antibiotics. Will follow.
[2017-12-20] MEDS: INSULIN GLARGINE SOLOSTAR 100 UNITS/ML 3 ML PEN SC SCH (21:24)
[2017-12-20 21:29] VITALS: BP 151/55; PULSE 85
[2017-12-20 23:14] VITALS: BP 139/64; PULSE 69; TEMP 36.7; O2SAT 98
[2017-12-21] MEDS: LEVOTHYROXINE 25 MCG TAB PO SCH (06:01)
[2017-12-21 07:11] VITALS: BP 150/56; PULSE 69; TEMP 36.8; O2SAT 97
--- NOTE | 2017-12-21 08:21 | SURGERY PROGRESS NOTE ---
DATE: 12/21/2017 Casa is resting comfortably in a chair as he usually does. He said his pain is much better than it had been. He has been taking some Tylenol. His last vitals showed a temperature of 36.7, pulse 69, respirations 18, blood pressure 139/64, and O2 saturation is 98% on room air. Laboratory grossman, yesterday's hemoglobin was 11.1, WBC is 10.0. The abscess in the right foot and the inflammatory response appear better to me, is still a little bit soupy as far as the amputation site of the second toe and the base of the great toe in the webspace. There seems to be some viable tissue in the bottom of this. He is having minimal of edge. On sensation, he does have sensation in the third toe beyond, minimal sensation in the great toe. We will watch him what he does over the weekend, but hopefully if he comes through, we may be able to do a transmetatarsal amputation of the second toe and great toe. This was discussed with the patient and will make a decision over the weekend.
[2017-12-21] MEDS: DOCUSATE SODIUM 100 MG CAP PO SCH ×2 (08:41→21:00)
[2017-12-21] MEDS: LISINOPRIL 20 MG TAB PO SCH (08:41)
[2017-12-21] MEDS: CLOPIDOGREL BISULFATE 75 MG TAB PO SCH (08:41)
[2017-12-21] MEDS: ATORVASTATIN 40 MG TAB PO SCH (08:41)
[2017-12-21] MEDS: HEPARIN SOD 5000 UNIT/0.5 ML CARP SQ SCH ×2 (08:42→21:26)
[2017-12-21] MEDS: ASPIRIN 81 MG ECTAB PO SCH (08:42)
[2017-12-21] MEDS: AMLODIPINE BESYLATE 5 MG TAB PO SCH (08:42)
[2017-12-21] MEDS: METOPROLOL TARTRATE 50 MG TAB PO SCH ×2 (08:42→21:23)
[2017-12-21] MEDS: INSULIN ASPART 100 UNITS/ML 3 ML PEN SC SCH ×3 (08:50→18:14)
--- NOTE | 2017-12-21 09:28 | Pharmacy Progress Note ---
Pharmacy Glycemic Short Note 2 Date of Service Dec 21, 2017. OUTPATIENT ANTIDIABETIC REGIMEN: * Lantus 15 units qPM * Novolog 4 units with meals + sliding scale * A1c = 9.5 % 12/19/2017 Item Value Date Time Bedside Glucose 189 mg/dl H 12/19/17 0802 Bedside Glucose 294 mg/dl H 12/19/17 1159 Bedside Glucose 167 mg/dl H 12/19/17 1707 Bedside Glucose 309 mg/dl H 12/19/17 2039 Item Value Date Time Bedside Glucose 75 mg/dl 12/20/17 0801 Bedside Glucose 268 mg/dl H 12/20/17 1157 Bedside Glucose 277 mg/dl H 12/20/17 1655 Bedside Glucose 99 mg/dl 12/20/17 2043 Bedside Glucose 113 mg/dl H 12/21/17 0759 ASSESSMENT: * Pt has been receiving 35-40 units of insulin per day with near adequate control * No AM hypoglycemia this morning since HS NovoLog coverage was stopped last evening. Recommend continuing this as an outpatient. Do not need to correct/ cover HS hyperglycemia or else LOW will result this next morning. Continue NovoLog AC only (no HS coverage) * AM fasting BSG is in goal range. Will continue reduced basal insulin dosing that is ordered. * post-prandial BSGs slightly elevated --> will tighten CR PLAN FOR INPATIENT GLYCEMIC CONTROL: * Basal insulin - no change * Lantus 13 units SQ qHS * Bolus insulin - tighten CR only * NovoLog per scale AC only. NO HS coverage * Goal Range: Low 110 mg/dL - High 140 mg/dL * Correction Factor: 30 mg/dL/unit * Nutritional / Prandial insulin per carb ratio of 1 unit per 9.5 grams CHO consumed PLAN FOR DISCHARGE: * Patient is a very brittle type 1 diabetic * Pt with recurrent LOWS in AM. * Stopping HS NovoLog coverage and decreasing Lantus from 15 units HS to 13 units HS has worked well to prevent AM hypo. * Recommend continuing this as an outpatient * Pt is receiving ~9-10 units of NovoLog with meals three times daily. Pt needs significantly more prandial coverage than basal insulin dosing.
[2017-12-21 15:09] VITALS: BP 112/63; PULSE 63; TEMP 36.3; O2SAT 99
--- NOTE | 2017-12-21 15:43 | Progress Note ---
Internal Med Progress Note Date of Service: Dec 21, 2017. Provider Documentation: SUBJECTIVE: Seen and examined at bedside Denies foot pain Denies chest pain, SOB, dizziness No other complaints OBJECTIVE: Vital Signs-as noted below General Appearance:Moderately built and nourished, no apparent distress Head: normocephalic, Atraumatic Eyes: normal inspection, EOMI, PERRL Neck: supple, Trachea midline Respiratory/Chest: Normal breath sounds, CTA Cardiovascular: S1, S2, No murmur Abdomen/GI:Soft, Non tender, Bowel sounds present Extremities/Musculoskelatal:normal inspection, no edema, Left BKA, Right foot in dressing Neurologic/Psych:AAOX3, grossly no focal neurological deficits Skin:normal color,warm Lab data as noted below. 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 Continue IV Zosyn, Vanco>>> Transitioned to IV Ceftriaxone 2gm daily Will need 6 weeks of Abx. Discussed with ID Wound culture: Citrobacter MRSA screen negative Appreciate ID Input Surgery following May need transmetatarsal amputation DM Type I continue ISS, Lantus Monitor BGs Hypoglycemic this morning A1C:9.5 Pharmacy Consulted for Glycemic management CAD Stable Continue Aspirin, statin, beta-theo HTN: stable continue lisinopril, metoprolol PAD Continue aspirin, Plavix Possible Subclinical Hypothyroidism: Elevated TSH, normal free T4 Continue levothyroxine Repeat Thyroid function test as outpatient DVT Px: Heparin SQ Disposition: Per Primary Team Vital Signs: Date Time Temp Pulse Resp B/P (MAP) Pulse Ox O2 Delivery O2 Flow Rate FiO2 12/21/17 15:09 36.3 63 20 112/63 (79) 99 Room Air 12/21/17 08:40 Room Air 12/21/17 07:11 36.8 69 16 150/56 (87) 97 Room Air 12/20/17 23:25 Room Air 12/20/17 23:14 36.7 69 16 139/64 (89) 98 Room Air 12/20/17 21:29 85 151/55 (87) 12/20/17 16:00 Room Air Lab Results: Results Past 24 Hours Test 12/20/17 16:55 12/20/17 20:43 12/21/17 07:59 12/21/17 11:49 Range/Units Bedside Glucose 277 99 113 234 70-99 mg/dl
[2017-12-21] MEDS: CEFTRIAXONE SOD INJ 2,000 MG in DEXTROSE 5% 50ML 50 ML IV SCH (16:34)
--- NOTE | 2017-12-21 19:47 | Infectious Disease Progress Nt ---
Progress Note Date of Service Dec 21, 2017. Subjective Pt evaluation today including: conversation w/ patient, physical exam, chart review, lab review, review of studies, conversation w/ environmental remediation consultant, review of inpatient medication list Offers no new complaints today. Remains afebrile. Denies any significant pain. Continues to tolerate antibiotics without apparent difficulty. All Other Systems: Reviewed and Negative Medications Current Inpatient Medications Medications (Trade) Dose Ordered Sig/Annette Route Start Time Stop Time Status Last Admin Dose Admin Ondansetron HCl (Zofran Inj) 4 mg Q4H PRN IV 12/17/17 14:30 01/16/18 14:29 Acetaminophen (Tylenol Tab) 650 mg Q6H PRN PO 12/17/17 14:30 01/16/18 14:29 Oxycodone/ Acetaminophen (Percocet 5-325mg Tab) 1 tab Q4H PRN PO 12/17/17 14:30 12/31/17 14:29 12/18/17 09:28 1 TAB Morphine Sulfate (MoRPHine SULFATE INJ) 2 mg Q3HWA PRN IV 12/17/17 14:30 12/31/17 14:29 Oxycodone/ Acetaminophen (Percocet 5-325mg Tab) 2 tab Q4H PRN PO 12/17/17 14:30 12/31/17 14:29 12/18/17 00:44 2 TAB Morphine Sulfate (MoRPHine SULFATE INJ) 4 mg Q3HWA PRN IV 12/17/17 14:30 12/31/17 14:29 Heparin Sodium (Porcine) (Heparin Sq 5000 Unit/0.5ml) 5,000 unit Q12 SQ 12/18/17 09:00 01/17/18 08:59 12/20/17 21:24 5,000 UNIT Amlodipine Besylate (Norvasc Tab) 5 mg DAILY PO 12/18/17 09:00 01/17/18 08:59 12/21/17 08:42 5 MG Atorvastatin Calcium (Lipitor Tab) 40 mg DAILY PO 12/18/17 09:00 01/17/18 08:59 12/21/17 08:41 40 MG Lisinopril (Zestril Tab) 20 mg DAILY PO 12/18/17 09:00 01/17/18 08:59 12/21/17 08:41 20 MG Metoprolol Tartrate (Lopressor Tab) 50 mg BID PO 12/17/17 21:00 01/16/18 20:59 12/21/17 08:42 50 MG Glucose (Glucose 40% Gel) 15-30 GRAMS 15 GRAMS... UD PRN PO 12/17/17 18:00 01/16/18 17:59 12/18/17 06:57 30 GM Glucose (Glucose Chew Tab) 4-8 Tablets 4 Tabl... UD PRN PO 12/17/17 18:00 01/16/18 17:59 Dextrose (Dextrose 50% 50ML Syringe) 25-50ML 25ML FOR ... UD PRN IV 12/17/17 18:00 01/16/18 17:59 Glucagon (Glucagon Inj) 1 mg UD PRN SQ 12/17/17 18:00 01/16/18 17:59 Carbohydrates (Carbohydrates For Hypoglycemia) 15-30 GRAMS 15 grams if BSG 54-69... UD PRN PO 12/17/17 18:00 01/16/18 17:59 12/18/17 06:58 30 GM Clopidogrel Bisulfate (plAVix TAB) 75 mg QAM PO 12/18/17 09:00 01/17/18 08:59 12/21/17 08:41 75 MG Miscellaneous Information (Consult Glycemic Management Pharmacy) 1 ea UD PRN N/A 12/18/17 09:05 01/17/18 09:04 Insulin Aspart (novoLOG ASPART) SLIDING SCALE If C... AC SC 12/18/17 12:00 01/17/18 11:59 12/21/17 18:14 7 UNITS Insulin Glargine (Lantus Solostar Pen) 13 units QPM SC 12/18/17 21:00 01/17/18 20:59 12/20/17 21:24 13 UNITS Levothyroxine Sodium (Synthroid Tab) 25 mcg DAILYBB PO 12/19/17 06:00 01/18/18 05:59 12/21/17 06:01 25 MCG Aspirin (Ecotrin Tab) 81 mg DAILY PO 12/19/17 09:00 01/18/18 08:59 12/21/17 08:42 81 MG Docusate Sodium (coLACE CAP) 100 mg BID PO 12/19/17 09:00 01/18/18 08:59 12/21/17 08:41 100 MG Ceftriaxone Sodium 2000 mg/ Dextrose 70 ml @ 100 mls/hr Q24H IV 12/20/17 16:00 12/30/17 15:59 12/21/17 16:34 100 MLS/HR Objective Vital Signs Date Time Temp Pulse Resp B/P (MAP) Pulse Ox O2 Delivery O2 Flow Rate FiO2 12/21/17 15:09 36.3 63 20 112/63 (79) 99 Room Air 12/21/17 08:40 Room Air 12/21/17 07:11 36.8 69 16 150/56 (87) 97 Room Air 12/20/17 23:25 Room Air 12/20/17 23:14 36.7 69 16 139/64 (89) 98 Room Air 12/20/17 21:29 85 151/55 (87) Physical Exam General Appearance: WD/WN, no apparent distress Eyes: normal inspection, EOMI, sclerae normal ENT: normal ENT inspection, pharynx normal Neck: supple, no adenopathy, thyroid normal, trachea midline Respiratory/Chest: chest non-tender, lungs clear, normal breath sounds, no respiratory distress Cardiovascular: regular rate, rhythm, no gallop, no murmur Abdomen: normal bowel sounds, non tender, soft, no organomegaly Extremities: normal range of motion, non-tender, no calf tenderness Neurologic/Psychiatric: alert, oriented x 3 Skin: normal color, no rash, + pertinent finding (No purulent drainage from foot wound) Laboratory Results Last 24 Hours Test 12/20/17 20:43 12/21/17 07:59 12/21/17 11:49 12/21/17 16:37 Bedside Glucose 99 mg/dl 113 mg/dl 234 mg/dl 230 mg/dl Assessment and Plan 62-year-old male with severe peripheral arterial disease and diabetes mellitus now with worsening right foot infection following amputation of his right second toe. Culture growing fully sensitive Citrobacter, patient to be treated with IV ceftriaxone for 6 week course. Will follow as outpatient.
[2017-12-21] MEDS: INSULIN GLARGINE SOLOSTAR 100 UNITS/ML 3 ML PEN SC SCH (21:25)
[2017-12-21 23:02] VITALS: BP 131/66; PULSE 67; TEMP 37.2; O2SAT 96
[2017-12-22 00:15] VITALS: O2SAT 96
[2017-12-22] MEDS: LEVOTHYROXINE 25 MCG TAB PO SCH (06:28)
--- NOTE | 2017-12-22 07:34 | Surgery Progress Note ---
Surgery Progress Note Date of Service Dec 22, 2017. Subjective + feeling well, + pain controlled, + diet (regular diet), No complaints, No nausea, No vomiting Objective Vital Signs: Date Time Temp Pulse Resp B/P (MAP) Pulse Ox O2 Delivery O2 Flow Rate FiO2 12/22/17 00:15 96 Room Air 12/21/17 23:02 37.2 67 14 131/66 (87) 96 Room Air 12/21/17 16:30 Room Air 12/21/17 15:09 36.3 63 20 112/63 (79) 99 Room Air 12/21/17 08:40 Room Air General Appearance: no apparent distress Head: normocephalic, atraumatic Respiratory/Chest: no respiratory distress Extremities: + pertinent finding (abscess and inflammation of right foot improving, sensation and motor function appear to be intact.) Laboratory Results: Results Past 24 Hours Test 12/21/17 07:59 12/21/17 11:49 12/21/17 16:37 12/21/17 20:20 Range/Units Bedside Glucose 113 234 230 232 70-99 mg/dl Assessment & Plan Right foot abscess Patient seen and examined with Dr. Peña. pain controlled. Abscess appears to be improving. Motor function intact, inflammation appears to be reduced, sensation intact in great toe and third toe and beyond. Continue current management, IV Abx. May be able to hold off on amputation if right foot continues to improve. Will discuss findings with ID. Contact with questions or concerns.
[2017-12-22 07:38] VITALS: BP 146/65; PULSE 83; TEMP 36.8; O2SAT 97
[2017-12-22] MEDS: HEPARIN SOD 5000 UNIT/0.5 ML CARP SQ SCH ×2 (09:00→21:00)
[2017-12-22] MEDS: DOCUSATE SODIUM 100 MG CAP PO SCH ×2 (09:00→21:00)
[2017-12-22] MEDS: ATORVASTATIN 40 MG TAB PO SCH (09:04)
[2017-12-22] MEDS: CLOPIDOGREL BISULFATE 75 MG TAB PO SCH (09:04)
[2017-12-22] MEDS: METOPROLOL TARTRATE 50 MG TAB PO SCH ×2 (09:06→21:17)
[2017-12-22] MEDS: LISINOPRIL 20 MG TAB PO SCH (09:06)
[2017-12-22] MEDS: AMLODIPINE BESYLATE 5 MG TAB PO SCH (09:06)
[2017-12-22] MEDS: INSULIN ASPART 100 UNITS/ML 3 ML PEN SC SCH ×3 (09:13→18:23)
--- NOTE | 2017-12-22 09:46 | Pharmacy Progress Note ---
Pharmacy Glycemic Short Note 2 Date of Service Dec 22, 2017. OUTPATIENT ANTIDIABETIC REGIMEN: * Lantus 15 units qPM * Novolog 4 units with meals + sliding scale * A1c = 9.5 % 12/19/2017 Item Value Date Time Bedside Glucose 189 mg/dl H 12/19/17 0802 Bedside Glucose 294 mg/dl H 12/19/17 1159 Bedside Glucose 167 mg/dl H 12/19/17 1707 Bedside Glucose 309 mg/dl H 12/19/17 2039 Item Value Date Time Bedside Glucose 75 mg/dl 12/20/17 0801 Bedside Glucose 268 mg/dl H 12/20/17 1157 Bedside Glucose 277 mg/dl H 12/20/17 1655 Bedside Glucose 99 mg/dl 12/20/17 2043 Item Value Date Time Bedside Glucose 113 mg/dl H 12/21/17 0759 Bedside Glucose 234 mg/dl H 12/21/17 1149 Bedside Glucose 230 mg/dl H 12/21/17 1637 Bedside Glucose 232 mg/dl H 12/21/17 2020 Bedside Glucose 255 mg/dl H 12/22/17 0803 ASSESSMENT: * Pt has been receiving 35-40 units of insulin per day with near adequate control * No AM hypoglycemia this morning since HS NovoLog coverage was stopped. Recommend continuing this as an outpatient. Do not need to correct/cover HS hyperglycemia and/or CHO at bedtime or else LOW will result this next morning. Continue NovoLog AC only (no HS coverage) * AM fasting BSG is above goal range and trending upwards. Current basal insulin dosing is below outpatient dosing secondary to recurrent AM hypo. Will titrate back to outpatient basal insulin dosing now that AM hypo resolved. * post-prandial BSGs slightly elevated --> will tighten CR PLAN FOR INPATIENT GLYCEMIC CONTROL: * Basal insulin - increase dose to outpatient dosing * Lantus 15 units SQ qHS * Will give first dose slightly early at dinner today instead of HS to prevent lapse in coverage * Bolus insulin - tighten CR only * NovoLog per scale AC only. NO HS coverage * Goal Range: Low 110 mg/dL - High 140 mg/dL * Correction Factor: 30 mg/dL/unit * Nutritional / Prandial insulin per carb ratio of 1 unit per 9 grams CHO consumed PLAN FOR DISCHARGE: * Patient is a very brittle type 1 diabetic * Pt with recurrent LOWS in AM. * Stopping HS NovoLog coverage has worked well to prevent AM hypo. * Recommend continuing this as an outpatient * Pt is receiving ~9-10 units of NovoLog with meals three times daily. Pt needs significantly more prandial coverage than basal insulin dosing.
[2017-12-22] MEDS: ASPIRIN 81 MG ECTAB PO SCH (09:52)
--- NOTE | 2017-12-22 12:46 | Progress Note ---
Internal Med Progress Note Date of Service: Dec 22, 2017. Provider Documentation: SUBJECTIVE: Seen and examined at bedside Feels well Abscess appears to be improving Denies foot pain Denies chest pain, SOB, dizziness No other complaints OBJECTIVE: Vital Signs-as noted below General Appearance:Moderately built and nourished, no apparent distress Head: normocephalic, Atraumatic Eyes: normal inspection, EOMI, PERRL Neck: supple, Trachea midline Respiratory/Chest: Normal breath sounds, CTA Cardiovascular: S1, S2, No murmur Abdomen/GI:Soft, Non tender, Bowel sounds present Extremities/Musculoskelatal:normal inspection, no edema, Left BKA, Right foot in dressing Neurologic/Psych:AAOX3, grossly no focal neurological deficits Skin:normal color,warm Lab data as noted below. 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 Continue IV Zosyn, Vanco>>> Transitioned to IV Ceftriaxone 2gm daily Will need 6 weeks of Abx. Discussed with ID Wound culture: Citrobacter MRSA screen negative Appreciate ID Input Surgery following May not need transmetatarsal amputation if continues to improve as per Ortho continue wound care DM Type I A1C:9.5 continue ISS, Lantus Monitor BGs Hypoglycemic this morning Pharmacy Consulted for Glycemic management CAD Stable Continue Aspirin, statin, beta-theo HTN: stable continue lisinopril, metoprolol PAD Continue aspirin, Plavix Possible Subclinical Hypothyroidism: Elevated TSH, normal free T4 Continue levothyroxine Repeat Thyroid function test as outpatient DVT Px: Heparin SQ Disposition: Per Primary Team Vital Signs: Date Time Temp Pulse Resp B/P (MAP) Pulse Ox O2 Delivery O2 Flow Rate FiO2 12/22/17 07:40 Room Air 12/22/17 07:38 36.8 83 16 146/65 (92) 97 Room Air 12/22/17 00:15 96 Room Air 12/21/17 23:02 37.2 67 14 131/66 (87) 96 Room Air 12/21/17 16:30 Room Air 12/21/17 15:09 36.3 63 20 112/63 (79) 99 Room Air Lab Results: Results Past 24 Hours Test 12/21/17 16:37 12/21/17 20:20 12/22/17 08:03 Range/Units Bedside Glucose 230 232 255 70-99 mg/dl
[2017-12-22 15:01] VITALS: BP 121/58; PULSE 77; TEMP 36.9; O2SAT 98
[2017-12-22 16:10] VITALS: O2SAT 98
[2017-12-22] MEDS: CEFTRIAXONE SOD INJ 2,000 MG in DEXTROSE 5% 50ML 50 ML IV SCH (16:10)
[2017-12-22] MEDS ORDERED: INSULIN GLARGINE SOLOSTAR 100 UNITS/ML 3 ML PEN SC SCH (16:45)
[2017-12-22 22:50] VITALS: BP 142/67; PULSE 74; TEMP 36.7; O2SAT 98
[2017-12-23 00:15] VITALS: O2SAT 98
[2017-12-23] MEDS: LEVOTHYROXINE 25 MCG TAB PO SCH (05:30)
[2017-12-23 07:26] VITALS: BP 129/70; PULSE 73; TEMP 36.8; O2SAT 95
[2017-12-23] MEDS ORDERED: PLV75 PO (08:35)
[2017-12-23] MEDS ORDERED: CEFT1INJ6 IV (08:35)
[2017-12-23] MEDS ORDERED: SYN25 PO (08:35)
--- NOTE | 2017-12-23 08:37 | Discharge Instructions ---
Discharge Instructions Date of Service Dec 23, 2017. Admission Reason for Admission: Right Foot Abscess Discharge Discharge Diagnosis / Problem: right foot infection Discharge Goals Goal(s): Improve disease control Activity Recommendations Activity Limitations: resume your previous activity Shower/Bathe: no limitations . Instructions / Follow-Up Instructions / Follow-Up Dr. Peña in 1 week, call [phone] to schedule Family physician in 1-2 weeks to have your thyroid level checked Current Hospital Diet Patient's current hospital diet: Diabetes Type 1 Diet Discharge Diet Recommended Diet: Diabetes Type 1 Diet Pending Studies Studies pending at discharge: no Laboratory Results Hemoglobin A1c Test 12/19/17 06:40 Range/Units Estimated Average Glucose 226 mg/dl Hemoglobin A1c 9.5 H 4.5-5.6 % Medical Emergencies . Who to Call and When: Medical Emergencies: If at any time you feel your situation is an emergency, please call 911 immediately. . Non-Emergent Contact Non-Emergency issues call your: Surgeon Call Non-Emergent contact if: you have a fever, temperature is above 101.5, your pain is not controlled, wound has increased drainage, wound has increased redness, wound has increased pain, you have any medication questions . "Provider Documentation" section prepared by Talon Ambrocio. .
[2017-12-23] MEDS: CLOPIDOGREL BISULFATE 75 MG TAB PO SCH (08:43)
[2017-12-23] MEDS: LISINOPRIL 20 MG TAB PO SCH (08:43)
[2017-12-23] MEDS: AMLODIPINE BESYLATE 5 MG TAB PO SCH (08:43)
[2017-12-23] MEDS: ATORVASTATIN 40 MG TAB PO SCH (08:43)
[2017-12-23] MEDS: DOCUSATE SODIUM 100 MG CAP PO SCH (08:44)
[2017-12-23] MEDS: ASPIRIN 81 MG ECTAB PO SCH (08:44)
[2017-12-23] MEDS: METOPROLOL TARTRATE 50 MG TAB PO SCH (08:44)
--- NOTE | 2017-12-23 08:44 | Surgery Progress Note ---
Surgery Progress Note Date of Service Dec 23, 2017. Subjective + feeling well Objective Vital Signs: Date Time Temp Pulse Resp B/P (MAP) Pulse Ox O2 Delivery O2 Flow Rate FiO2 12/23/17 07:26 36.8 73 18 129/70 (89) 95 Room Air 12/23/17 00:15 98 Room Air 12/22/17 22:50 36.7 74 18 142/67 (92) 98 Room Air 12/22/17 16:10 98 Room Air 12/22/17 15:01 36.9 77 18 121/58 (79) 98 Incision(s): findings (new dressing this AM) Laboratory Results: Results Past 24 Hours Test 12/22/17 12:09 12/22/17 16:56 12/22/17 20:35 12/23/17 07:59 Range/Units Bedside Glucose 299 297 273 191 70-99 mg/dl Assessment & Plan right foot infection, DM, PAD will place PICC for outpatient abx, 6 weeks rocephin home today with home health f/u with PCP for thyroid will see in clinic next week seen with Dr. Peña right foot infection, DM, PAD WBC improved continue IV priscilla vieyra ID following Dr. Peña will be following over the weekend
[2017-12-23] MEDS: INSULIN ASPART 100 UNITS/ML 3 ML PEN SC SCH ×2 (08:52→12:39)
[2017-12-23] MEDS: HEPARIN SOD 5000 UNIT/0.5 ML CARP SQ SCH (08:56)
--- NOTE | 2017-12-23 10:24 | Progress Note ---
Internal Med Progress Note Date of Service: Dec 23, 2017. Provider Documentation: SUBJECTIVE: Seen and examined at bedside Doing well Abscess improving Denies foot pain Denies chest pain, SOB, dizziness No other complaints Discussed about controlling his Blood sugar levels OBJECTIVE: Vital Signs-as noted below General Appearance:Moderately built and nourished, no apparent distress Head: normocephalic, Atraumatic Eyes: normal inspection, EOMI, PERRL Neck: supple, Trachea midline Respiratory/Chest: Normal breath sounds, CTA Cardiovascular: S1, S2, No murmur Abdomen/GI:Soft, Non tender, Bowel sounds present Extremities/Musculoskelatal:normal inspection, no edema, Left BKA, Right foot in dressing/Boot Neurologic/Psych:AAOX3, grossly no focal neurological deficits Skin:normal color,warm Lab data as noted below. 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 Continue IV Zosyn, Vanco>>> Transitioned to IV Ceftriaxone 2gm daily Will need 6 weeks of Abx. Discussed with ID Planned for PICC line placement today Wound culture: Citrobacter MRSA screen negative Appreciate ID Input Surgery following May not need transmetatarsal amputation if continues to improve as per Ortho continue wound care DM Type I A1C:9.5 continue ISS, Lantus Monitor BGs Hypoglycemic this morning Pharmacy Consulted for Glycemic management CAD Stable Continue Aspirin, statin, beta-theo HTN: stable continue lisinopril, metoprolol PAD Continue aspirin, Plavix Possible Subclinical Hypothyroidism: Elevated TSH, normal free T4 Continue levothyroxine Repeat Thyroid function test as outpatient DVT Px: Heparin SQ Disposition: Per Primary Team Follow up with on 12/26/17 at 11:25am for routine care Follow up with in 1 week Complete the antibiotic course as advised Vital Signs: Date Time Temp Pulse Resp B/P (MAP) Pulse Ox O2 Delivery O2 Flow Rate FiO2 12/23/17 07:26 36.8 73 18 129/70 (89) 95 Room Air 12/23/17 07:11 Room Air 12/23/17 00:15 98 Room Air 12/22/17 22:50 36.7 74 18 142/67 (92) 98 Room Air 12/22/17 16:10 98 Room Air 8/5/18 15:01 36.9 77 18 121/58 (79) 98 Lab Results: Results Past 24 Hours Test 12/22/17 12:09 12/22/17 16:56 12/22/17 20:35 12/23/17 07:59 Range/Units Bedside Glucose 299 297 273 191 70-99 mg/dl
[2017-12-23 13:59] VITALS: BP 129/70; PULSE 73; TEMP 36.8; O2SAT 95
[2017-12-23] MEDS: CEFTRIAXONE SOD INJ 2,000 MG in DEXTROSE 5% 50ML 50 ML IV SCH (15:35)
[2017-12-23] MEDS ORDERED: INSULIN GLARGINE SOLOSTAR 100 UNITS/ML 3 ML PEN SC SCH (17:45)
--- NOTE | 2017-12-27 10:27 | DISCHARGE SUMMARY ---
PRIMARY DISCHARGE DIAGNOSES: 1. Right foot cellulitis. 2. Recent right second toe amputation. 3. Type 1 diabetes. 4. Peripheral arterial disease. 5. Coronary artery disease. 6. Hypertension. 7. Left BKA status. CONSULTATIONS: 1. [facility] hospitalist to assist in medical management. 2. Infectious disease for antibiotic selection. HOSPITAL COURSE: The patient is a 62-year-old male approximately 2 weeks status post right second toe amputation who presented to the surgical clinic for a scheduled followup. He had a cellulitis in the right forefoot, was directly admitted for IV antibiotic therapy, possibly further debridement or amputation. He was started on vancomycin and Zosyn empirically until wound cultures returned. Infectious disease and the hospitalists were consulted routinely to help manage his diabetes and hypertension. Wound care nurses were consulted for daily dressing changes. After several days of IV therapy, his cellulitis was improving. When the cultures returned with citrobacter, he was changed to daily IV Rocephin. He continued to make improvement over the next several days. He was started on Plavix for his peripheral arterial disease. He had an elevated TSH, but normal T4. He was started on Synthroid by the medical service. After a week of IV therapy, he was stable for discharge home with continued IV antibiotics. A PICC line was placed. Referral was placed at home health. He was seen by orthotics for a surgical shoe. DISCHARGE INSTRUCTIONS: Discharge home. Follow up with Dr. Peña in 1 week. He will have home health to assist in dressing changes and IV antibiotics. Continue IV ceftriaxone for 6 weeks. Follow up with Dr. Butts in approximately 2 weeks. Follow up with his PCP in approximately 1 week for followup of his thyroid. Outpatient orthotics follow-up was also recommended. DISCHARGE MEDICATIONS: Rocephin 1 gram IV daily x6 weeks, Plavix 75 mg daily, Synthroid 25 mcg daily. Continue his previous home medications, Norvasc 5 mg daily, aspirin 325 mg daily, Lipitor 40 mg daily, NovoLog 4 units 3 times daily, Lantus 15 units subq in the evening, Zestril 20 mg daily, Lopressor 50 mg b.i.d. MTDD
== END 2017-12-23 16:45 | disposition home health service (06) | DRG 603 ==
LOC: UNDOADMIN 10:39 → C.MSN 10:39
PROVIDERS: ADMIT Surgery; ATTEND Surgery
PROC: 05HB33Z Insertion of Infusion Device into Right Basilic Vein, Percutaneous Approach (ICD-10-PCS; principal; 2017-12-23)
DX: L02.611 Cutaneous abscess of right foot (principal); B96.89 Other specified bacterial agents as the cause of diseases classified elsewhere; E10.51 Type 1 diabetes mellitus with diabetic peripheral angiopathy without gangrene; E10.649 Type 1 diabetes mellitus with hypoglycemia without coma; I25.10 Atherosclerotic heart disease of native coronary artery without angina pectoris; I10 Essential (primary) hypertension; E03.9 Hypothyroidism, unspecified; Z89.421 Acquired absence of other right toe(s); Z86.19 Personal history of other infectious and parasitic diseases; Z89.512 Acquired absence of left leg below knee; Z87.891 Personal history of nicotine dependence; Z79.82 Long term (current) use of aspirin; Z79.899 Other long term (current) drug therapy; Z91.040 Latex allergy status; Z91.048 Other nonmedicinal substance allergy status; Z83.3 Family history of diabetes mellitus

== ENCOUNTER → 2018-01-07 | Outpatient (CLI) | payer OTHER ==
[~2018-01-07] MED LIST changes: +CEFT1INJ6 IV; -LEVO25TA PO; -OXYC-57 PO; +PLV75 PO; +SYN25 PO
[2018-01-07 19:15] LABS: HEMATOCRIT 31.3 % (42-52); HEMOGLOBIN 10.5 g/dL (14.0-18.0); MEAN CELL VOLUME 86.7 fL (80-100); MEAN CORPUSCULAR HEMOGLOBIN 29.1 pg (25-34); MEAN CORPUSCULAR HGB CONC 33.5 g/dl (32-36); MEAN PLATELET VOLUME 9.8 fL (7.4-10.4); PLATELET COUNT 311 K/uL (130-400); RED CELL DISTRIBUTION WIDTH CV 14.2 % (11.5-14.5); RED CELL DISTRIBUTION WIDTH SD 45.4 fL (36.4-46.3); WHITE BLOOD COUNT 10.29 K/uL (4.8-10.8)
[2018-01-07 19:34] LABS: ALBUMIN 3.3 gm/dl (3.4-5.0); ALKALINE PHOSPHATASE 103 U/L (45-117); ALT/SGPT 27 U/L (12-78); AST/SGOT 18 U/L (15-37); BLOOD UREA NITROGEN 21 mg/dl (7-18); CALCIUM 8.8 mg/dl (8.5-10.1); CARBON DIOXIDE 27 mmol/L (21-32); POTASSIUM 3.9 mmol/L (3.5-5.1); SODIUM 132 mmol/L (136-145)
[2018-01-07 19:59] LABS: GLUCOSE 52 mg/dl (70-99)
== END | disposition home or self-care (01) ==
LOC: C.LABSPEC 19:19
PROVIDERS: ATTEND Internal Medicine Cardiovascular Disease
DX: B99.9 Unspecified infectious disease (principal)